=== PATIENT | female | born 1990 | race Caucasian/White ===

== ENCOUNTER 2018-11-05 08:52 | Emergency (ER) | payer OTHER ==
[2018-11-05 09:13] VITALS: RESP 18
[2018-11-05] MEDS ORDERED: SODIUM CHLORIDE 0.9% 1,000 ML IV ONE (09:18)
[2018-11-05 09:42] LABS: Basophils % (A) 0 %; Eosinophils # (A) 0.1 k/uL (0-0.7); Eosinophils % (A) 1 %; HCT 41.8 % (34.0-46.0); HGB 14.2 gm/dL (11.4-16.0); Lymphocytes # (A) 2.5 k/uL (1.0-4.8); Lymphocytes % (A) 24 %; MCH 30.3 pg (25.0-35.0); MCHC 34.1 g/dL (31.0-37.0); MCV 88.8 fL (80.0-100.0); Mean Platelet Volume 6.9; Monocytes # (A) 0.6 k/uL (0-1.0); Monocytes % (A) 6 %; Neutrophils # (A) 6.9 k/uL (1.3-7.7); Neutrophils % (A) 67 %; Platelet Count 319 k/uL (150-450); RDW 13.8 % (11.5-15.5); WBC 10.2 k/uL (3.8-10.6)
--- NOTE | 2018-11-05 09:44 | ED ---
Nausea/Vomiting/Diarrhea HPI - General Chief complaint: Nausea/Vomiting/Diarrhea Stated complaint: , LEGS FEEL WEAK Time Seen by Provider: 11/05/18 09:15 Source: patient, RN notes reviewed Mode of arrival: ambulatory Limitations: no limitations - History of Present Illness Initial comments: This a 20-year-old female presents emergency Department chief complaint of nausea, generalized weakness. Patient states she is approximately 7 weeks pregn ant. She did have some abdominal cramping this morning no bleeding no vaginal discharge. Patient states she is A0. Patient states that she is appointment next week with her PICU NURSE Dr. Olvera. Patient denies any chest pain or shortness of breath. She states she did not eat this morning because she was nauseated. Patient states that she just feels more weak than usual. Patient offers no other complaints. - Related Data Home Medications Medication Instructions Recorded Confirmed Pnv,Calcium 72/Iron/Folic Acid 1 tab PO DAILY 09/06/15 11/05/18 [ Plus Tablet] Allergies Allergy/AdvReac Type Severity Reaction Status Date / Time No Known Allergies Allergy Verified 11/05/18 09:49 Review of Systems ROS Statement: Those systems with pertinent positive or pertinent negative responses have been documented in the HPI. ROS Other: All systems not noted in ROS Statement are negative. Past Medical History Past Medical History: No Reported History Additional Past Medical History / Comment(s): MRSA, mental health illness, UTIs History of Any Multi-Drug Resistant Organisms: MRSA Date of last positivie culture/infection: 10/2014 MDRO Source:: skin, was on her thighs, buttocks, and back Past Surgical History: Appendectomy, Section, Cholecystectomy, Orthopedic Surgery Additional Past Surgical History / Comment(s): multiple bilateral knee surgeries Past Anesthesia/Blood Transfusion Reactions: No Reported Reaction Past Psychological History: Bipolar Smoking Status: Current every day smoker Past Alcohol Use History: Occasional Past Drug Use History: Marijuana - Past Family History Mother Family Medical History: Fibromyalgia Father History Unknown: Yes Family Medical History: Congestive Heart Failure (CHF), Hypertension General Exam Limitations: no limitations General appearance: alert, in no apparent distress Head exam: Present: atraumatic, normocephalic, normal inspection Eye exam: Present: normal appearance, PERRL, EOMI. Absent: scleral icterus, conjunctival injection, periorbital swelling ENT exam: Present: normal exam, normal oropharynx, mucous membranes moist Neck exam: Present: normal inspection, full ROM. Absent: tenderness, meningismus, lymphadenopathy Respiratory exam: Present: normal lung sounds bilaterally. Absent: respiratory distress, wheezes, rales, rhonchi, stridor Cardiovascular Exam: Present: regular rate, normal rhythm, normal heart sounds. Absent: systolic murmur, diastolic murmur, rubs, gallop, clicks GI/Abdominal exam: Present: soft, normal bowel sounds. Absent: distended, tenderness, guarding, rebound, rigid Course Vital Signs 11/05/18 09:12 Temperature 98.6 F Pulse Rate 72 Respiratory 18 Rate Blood Pressure 140/75 O2 Sat by Pulse 97 Oximetry Medical Decision Making - Medical Decision Making 20-year-old female presented from for nausea and , feeling weak. Patient has normal lab work, ultrasound shows gestational 6 weeks and 2 days. Patient will be discharged follow-up next week with PICU NURSE return parameters were discussed. - Lab Data Result diagrams: 11/05/18 09:32 11/05/18 09:32 Lab Results 11/05/18 11/05/18 11/05/18 Range/Units 09:32 09:32 09:32 WBC 10.2 (3.8-10.6) k/uL RBC 4.70 (3.80-5.40) m/uL Hgb 14.2 (11.4-16.0) gm/dL Hct 41.8 (34.0-46.0) % MCV 88.8 (80.0-100.0) fL MCH 30.3 (25.0-35.0) pg MCHC 34.1 (31.0-37.0) g/dL RDW 13.8 (11.5-15.5) % Plt Count 319 (150-450) k/uL Neutrophils % 67 % Lymphocytes % 24 % Monocytes % 6 % Eosinophils % 1 % Basophils % 0 % Neutrophils # 6.9 (1.3-7.7) k/uL Lymphocytes # 2.5 (1.0-4.8) k/uL Monocytes # 0.6 (0-1.0) k/uL Eosinophils # 0.1 (0-0.7) k/uL Basophils # 0.0 (0-0.2) k/uL Sodium 141 (137-145) mmol/L Potassium 4.0 (3.5-5.1) mmol/L Chloride 107 (98-107) mmol/L Carbon Dioxide 25 (22-30) mmol/L Anion Gap 9 mmol/L BUN 12 (7-17) mg/dL Creatinine 0.49 L (0.52-1.04) mg/dL Est GFR (CKD-EPI)AfAm >90 (>60 ml/min/1.73 sqM) Est GFR (CKD-EPI)NonAf >90 (>60 ml/min/1.73 sqM) Glucose 79 (74-99) mg/dL Calcium 9.8 (8.4-10.2) mg/dL Total Bilirubin 0.4 (0.2-1.3) mg/dL AST 18 (14-36) U/L ALT 30 (9-52) U/L Alkaline Phosphatase 50 (38-126) U/L Total Protein 7.1 (6.3-8.2) g/dL Albumin 4.2 (3.5-5.0) g/dL HCG, Quant 60385.0 mIU/mL Urine Color Urine Appearance (Clear) Urine pH (5.0-8.0) Ur Specific [place] (1.001-1.035) Urine Protein (Negative) Urine Glucose (UA) (Negative) Urine Ketones (Negative) Urine Blood (Negative) Urine Nitrite (Negative) Urine Bilirubin (Negative) Urine Urobilinogen (<2.0) mg/dL Ur Leukocyte Esterase (Negative) Urine RBC (0-5) /hpf Urine WBC (0-5) /hpf Ur Squamous Epith Cells (0-4) /hpf Amorphous Sediment (None) /hpf Urine Bacteria (None) /hpf Urine Mucus (None) /hpf 11/05/18 Range/Units 09:39 WBC (3.8-10.6) k/uL RBC (3.80-5.40) m/uL Hgb (11.4-16.0) gm/dL Hct (34.0-46.0) % MCV (80.0-100.0) fL MCH (25.0-35.0) pg MCHC (31.0-37.0) g/dL RDW (11.5-15.5) % Plt Count (150-450) k/uL Neutrophils % % Lymphocytes % % Monocytes % % Eosinophils % % Basophils % % Neutrophils # (1.3-7.7) k/uL Lymphocytes # (1.0-4.8) k/uL Monocytes # (0-1.0) k/uL Eosinophils # (0-0.7) k/uL Basophils # (0-0.2) k/uL Sodium (137-145) mmol/L Potassium (3.5-5.1) mmol/L Chloride (98-107) mmol/L Carbon Dioxide (22-30) mmol/L Anion Gap mmol/L BUN (7-17) mg/dL Creatinine (0.52-1.04) mg/dL Est GFR (CKD-EPI)AfAm (>60 ml/min/1.73 sqM) Est GFR (CKD-EPI)NonAf (>60 ml/min/1.73 sqM) Glucose (74-99) mg/dL Calcium (8.4-10.2) mg/dL Total Bilirubin (0.2-1.3) mg/dL AST (14-36) U/L ALT (9-52) U/L Alkaline Phosphatase (38-126) U/L Total Protein (6.3-8.2) g/dL Albumin (3.5-5.0) g/dL HCG, Quant mIU/mL Urine Color Yellow Urine Appearance Cloudy H (Clear) Urine pH 8.0 (5.0-8.0) Ur Specific [place] 1.019 (1.001-1.035) Urine Protein Negative (Negative) Urine Glucose (UA) Negative (Negative) Urine Ketones Negative (Negative) Urine Blood Negative (Negative) Urine Nitrite Negative (Negative) Urine Bilirubin Negative (Negative) Urine Urobilinogen <2.0 (<2.0) mg/dL Ur Leukocyte Esterase Negative (Negative) Urine RBC <1 (0-5) /hpf Urine WBC 1 (0-5) /hpf Ur Squamous Epith Cells 7 H (0-4) /hpf Amorphous Sediment Few H (None) /hpf Urine Bacteria Rare H (None) /hpf Urine Mucus Rare H (None) /hpf Disposition Clinical Impression: , Nausea & vomiting Disposition: HOME SELF-CARE Condition: Stable Instructions (If sedation given, give patient instructions): (ED) Additional Instructions: Please return to the Emergency Department if symptoms worsen or any other concerns. Is patient prescribed a controlled substance at d/c from ED?: No Referrals: Fannie Jackson MD [Primary Care Provider] - 1-2 days Time of Disposition: 11:06
[2018-11-05 10:00] LABS: ALT 30 U/L (9-52); AST 18 U/L (14-36); Albumin 4.2 g/dL (3.5-5.0); Alkaline Phosphatase 50 U/L (38-126); Anion Gap 9 mmol/L; Blood Urea Nitrogen 12 mg/dL (7-17); Calcium 9.8 mg/dL (8.4-10.2); Carbon Dioxide 25 mmol/L (22-30); Chloride 107 mmol/L (98-107); Glucose 79 mg/dL (74-99); Sodium 141 mmol/L (137-145); Total Bilirubin 0.4 mg/dL (0.2-1.3); Total Protein 7.1 g/dL (6.3-8.2)
[2018-11-05 10:19] LABS: Amorphous Sediment,Urine Few /hpf; Appearance,Urine Cloudy (Clear); Bacteria,Urine Rare /hpf; Bilirubin,Urine Negative (Negative); Blood,Urine Negative (Negative); Color,Urine Yellow; Glucose,Urine (UA) Negative (Negative); Ketones,Urine Negative (Negative); Leukocyte Esterase,Urine Negative (Negative); Mucus,Urine Rare /hpf; Nitrite,Urine Negative (Negative); Protein,Urine Negative (Negative); RBC,Urine <1 /hpf (0-5); Specific Gravity,Urine 1.019 (1.001-1.035); Squamous Epithelial Cell,Urine 7 /hpf (0-4); Urobilinogen,Urine <2.0 mg/dL (<2.0); WBC,Urine 1 /hpf (0-5)
--- NOTE | 2018-11-05 10:53 | US ---
EXAMINATION TYPE: Transabdominal DATE OF EXAM: 11/05/2018 10:32 AM COMPARISON: NONE CLINICAL HISTORY: Pain. Patient states no pain or bleeding, bilateral leg weakness, 2, para 1 , history of EXAM PERFORMED: Transvaginal (TV) and Transabdominal (TA) and endovaginal scanning was performed for better evaluation of the and ovaries EXAM MEASUREMENTS: GESTATIONAL AGE / DATING Physician Established: Not established yet Dates by LMP: (6 weeks/4 days) EDC: 06/27/2019 Dates by First Scan: This is 1st scan Dates by Current Scan for: ( 6 weeks/2 days) EDC: 06/29/2019 MATERNAL ANATOMY Uterus: 8.8 x 4.6 x 5.5cm, anteverted, heterogeneous Right Ovary: 2.1 x 1.7 x 2.1cm Left Ovary: 4.2 x 3.2 x 3.9cm Post CDS / Adnexa: small amount of free fluid in posterior cul de sac Presence of free fluid: yes Presence of corpus luteal cyst: left ovary: 2.8 x 2.3 x 2.8cm cystic area Presence of subchorionic bleed: no GESTATION / SURVEY CRL: 0.5cm (6 weeks/2 days) Yolk Sac (normal less than 6mm): 3.4mm Heart Rate: 118 bpm Rhythm: Normal IUP: Viable IUP Date of LMP: 09/20/2018 Beta HcG (if available): Not available at time of exam IMPRESSION: Single viable intrauterine corresponding to ultrasound age 6 weeks 2 days with estimated da te of delivery 06/29/2019
[2018-11-05 12:29] VITALS: BP 139/97; PULSE 79; TEMP 98.4
== END 2018-11-05 11:16 | disposition home or self-care (01) ==
LOC: EC 08:52
DX: O21.9 Vomiting of pregnancy, unspecified (principal); O99.89 Other specified diseases and conditions complicating pregnancy, childbirth and the puerperium; R53.1 Weakness; R19.7 Diarrhea, unspecified; O99.331 Smoking (tobacco) complicating pregnancy, first trimester; F17.200 Nicotine dependence, unspecified, uncomplicated; Z86.14 Personal history of Methicillin resistant Staphylococcus aureus infection; Z90.49 Acquired absence of other specified parts of digestive tract; Z3A.01 Less than 8 weeks gestation of pregnancy
CPT/HCPCS: 36415; 76801; 76817; 80053; 81001; 84702; 85025; 96360; 99284

== ENCOUNTER 2019-03-17 19:46 | Outpatient (CLI) | payer OTHER ==
[2019-03-17 20:31] VITALS: BP 123/66; PULSE 98; RESP 16; TEMP 98.3
--- NOTE | 2019-03-18 08:37 | P.MSEPDOC ---
Presenting Problems - Arrival Data Date of Arrival on Unit: 03/17/19 Time of Arrival on Unit: 20:11 Mode of Transport: Ambulatory - Complaint OB-Reason for Admission/Chief Complaint: Pain Comment: Abdominal pain 03/15 Medical History - Information : 2 Para: 1 Term: 1 : 0 Abortions: Spontaneous or Elective: 0 Number of Living Children: 1 - Gestational Age Gestational Age by PHILLIP (wks/days): 25 Weeks and 3 Days - History Complications: Smoker Review of Systems - Review of Systems Constitutional: No problems Breast: No problems ENT: No problems Cardiovascular: No problems Respiratory: No problems Gastrointestinal: No problems Genitourinary: No problems Musculoskeletal: No problems Neurological: No problems Skin: No problems Vital Signs - Temperature Temperature: 98.3 F Temperature Source: Temporal Artery Scan - Pulse Right Brachial Pulse Rate: 98 Pulse Assessment Method: Automatic Cuff - Respirations Respiratory Rate: 16 Oxygen Delivery Method: Room Air O2 Sat by Pulse Oximetry: 95 - Blood Pressure Right Arm Blood Pressure: 123/66 Blood Pressure Mean: 85 Blood Pressure Source: Automatic Cuff Medical Screen Scoring (Pre) - Cervical Exam Dilation: Exam Deferred Effacement: Exam Deferred - Uterine Contractions Frequency: N/A Duration: N/A Intensity: N/A - Maternal Vital Signs Maternal Temperature: N/A - Maternal Trauma Maternal Trauma: N/A - Assessment - Baby A Baseline FHR: 150 Heart Rate - NICHD Category: Category I (Normal) = 0 Position: N/A Station: N/A - Total Score - Baby A Total Score - Baby A: 0 - Total Score - Baby B Total Score - Baby B: 0 - Total Score - Baby C Total Score - Baby C: 0 - Level of Risk - Baby A Level of Risk - Baby A: Low (0-5) - Level of Risk - Baby B Level of Risk - Baby B: Low (0-5) - Level of Risk - Baby C Level of Risk - Baby C: Low (0-5) Physician Notification (Pre) - Physician Notified Physician Notified Date: 03/17/19 Physician Notified Time: 20:11 Spoke With: Sindhu New Order Received: No - Notification Comment Comment: D/c pt home, follow up with Wade Flores 04/09/19. Call sooner if work release note is needed. Disposition - Disposition OB Disposition: Discharge to home, Written follow up instructions reviewed Discharge Date: 03/17/19 Discharge Time: 20:15 I agree with the RN Medical Screening Exam: Yes Risk & Benefit of care provided described in d/c instruction: Yes Diagnosis: LOWER ABDOMINAL PAIN, UNSPECIFIED
== END 2019-03-17 20:15 | disposition home or self-care (01) ==
LOC: FBPOP 19:46
PROVIDERS: ATTEND Obstetrics & Gynecology
DX: O26.892 Other specified pregnancy related conditions, second trimester (principal); Z3A.25 25 weeks gestation of pregnancy; R10.30 Lower abdominal pain, unspecified
CPT/HCPCS: 99213

== ENCOUNTER 2019-04-28 23:25 | Outpatient (CLI) | payer OTHER ==
[2019-04-29 00:25] VITALS: BP 135/64; PULSE 89; RESP 16; TEMP 97.1
[2019-04-29 00:51] LABS: Amorphous Sediment,Urine Moderate /hpf; Appearance,Urine Turbid (Clear); Bacteria,Urine Occasional /hpf; Bilirubin,Urine Negative (Negative); Blood,Urine Negative (Negative); Color,Urine Yellow; Glucose,Urine (UA) Negative (Negative); Ketones,Urine Negative (Negative); Leukocyte Esterase,Urine Large (Negative); Mucus,Urine Rare /hpf; Nitrite,Urine Negative (Negative); PH, Urine 6.5 (5.0-8.0); Protein,Urine Negative (Negative); RBC,Urine 3 /hpf (0-5); Specific Gravity,Urine 1.014 (1.001-1.035); Squamous Epithelial Cell,Urine 14 /hpf (0-4); Urobilinogen,Urine <2.0 mg/dL (<2.0); WBC,Urine 84 /hpf (0-5)
[2019-04-29 00:57] LABS: Amphetamine Screen,Urine Not Detected (NotDetected); Barbiturate Screen,Urine Not Detected (NotDetected); Benzodiazepines Screen,Urine Not Detected (NotDetected); Cocaine Screen,Urine Not Detected (NotDetected); Methadone Screen, Urine Not Detected (NotDetected); Opiate Screen,Urine Not Detected (NotDetected); Oxycodone Screen, Urine Not Detected (NotDetected); Phencyclidine Screen,Urine Not Detected (NotDetected); Tricyclic Antidepressant,Urine Not Detected (NotDetected); Urn Cannabinoid Scrn Detected (NotDetected)
--- NOTE | 2019-05-01 10:40 | P.MSEPDOC ---
Presenting Problems - Arrival Data Date of Arrival on Unit: 04/29/19 Time of Arrival on Unit: 23:25 Mode of Transport: Ambulatory - Complaint OB-Reason for Admission/Chief Complaint: Pain Comment: sharp pain that extends from back to left lower abdomen following chiropractic apt Medical History - Information : 2 Para: 1 Term: 1 : 0 Abortions: Spontaneous or Elective: 0 Number of Living Children: 1 - Gestational Age Gestational Age by PHILLIP (wks/days): 31 Weeks and 4 Days - History Complications: Smoker Review of Systems - Review of Systems Constitutional: No problems Breast: No problems ENT: No problems Cardiovascular: No problems Respiratory: No problems Gastrointestinal: No problems Genitourinary: No problems Musculoskeletal: No problems Neurological: No problems Skin: No problems Vital Signs - Temperature Temperature: 97.1 F Temperature Source: Temporal Artery Scan - Pulse Right Brachial Pulse Rate: 89 Pulse Assessment Method: Automatic Cuff - Respirations Respiratory Rate: 16 Oxygen Delivery Method: Room Air O2 Sat by Pulse Oximetry: 98 - Blood Pressure Right Arm Blood Pressure: 135/64 Blood Pressure Mean: 87 Blood Pressure Source: Automatic Cuff Medical Screen Scoring (Pre) - Cervical Exam Dilation: Exam Deferred Effacement: Exam Deferred Membranes: Intact - Uterine Contractions Frequency: N/A Duration: N/A Intensity: N/A - Maternal Vital Signs Maternal Temperature: N/A Maternal Blood Pressure: N/A Signs of Preeclampsia: N/A Maternal Respirations: N/A - Maternal Trauma Maternal Trauma: N/A - Assessment - Baby A Baseline FHR: 135 Heart Rate - NICHD Category: Category I (Normal) = 0 NST: Reactive Position: N/A Station: N/A - Total Score - Baby A Total Score - Baby A: 0 - Total Score - Baby B Total Score - Baby B: 0 - Total Score - Baby C Total Score - Baby C: 0 - Level of Risk - Baby A Level of Risk - Baby A: Low (0-5) - Level of Risk - Baby B Level of Risk - Baby B: Low (0-5) - Level of Risk - Baby C Level of Risk - Baby C: Low (0-5) Physician Notification (Pre) - Physician Notified Physician Notified Date: 04/29/19 Physician Notified Time: 00:01 Physician/Practitioner Notifed:: Dr. Brown Spoke With: Dr. Brown New Order Received: Yes - Notification Comment Comment: Dr. Brown called and given report on pt UA in triage. Orders recieved to d/c. pt to home. To educate pt to followup with chiropractor or Dr. Olvera. Disposition - Disposition OB Disposition: Discharge to home Discharge Date: 04/29/19 Discharge Time: 01:10 I agree with the RN Medical Screening Exam: Yes Risk & Benefit of care provided described in d/c instruction: Yes Diagnosis: RELATED CONDITIONS, UNSPECIFIED, THIRD TRIMESTER
== END 2019-04-29 01:10 | disposition home or self-care (01) ==
LOC: FBPOP 23:25
PROVIDERS: ATTEND Obstetrics & Gynecology
DX: O26.93 Pregnancy related conditions, unspecified, third trimester (principal); Z3A.31 31 weeks gestation of pregnancy
CPT/HCPCS: 59025; 81001; 80306; 87086; G0463; 99213

== ENCOUNTER 2019-06-06 22:30 | Outpatient (CLI) | payer OTHER ==
[2019-06-06 23:43] VITALS: PULSE 96; RESP 18; TEMP 97
[2019-06-06 23:50] LABS: Appearance,Urine Clear (Clear); Bacteria,Urine Rare /hpf; Bilirubin,Urine Negative (Negative); Blood,Urine Negative (Negative); Color,Urine Yellow; Glucose,Urine (UA) Negative (Negative); Ketones,Urine Negative (Negative); Leukocyte Esterase,Urine Small (Negative); Mucus,Urine Occasional /hpf; Nitrite,Urine Negative (Negative); PH, Urine 6.5 (5.0-8.0); Protein,Urine Negative (Negative); RBC,Urine 2 /hpf (0-5); Specific Gravity,Urine 1.014 (1.001-1.035); Squamous Epithelial Cell,Urine 2 /hpf (0-4); Urobilinogen,Urine <2.0 mg/dL (<2.0); WBC,Urine 6 /hpf (0-5)
[2019-06-07 00:21] LABS: Basophils # (A) 0.1 k/uL (0-0.2); Basophils % (A) 1 %; Eosinophils # (A) 0.3 k/uL (0-0.7); Eosinophils % (A) 2 %; HCT 37.1 % (34.0-46.0); HGB 12.4 gm/dL (11.4-16.0); Lymphocytes # (A) 2.5 k/uL (1.0-4.8); Lymphocytes % (A) 17 %; MCH 30.8 pg (25.0-35.0); MCHC 33.5 g/dL (31.0-37.0); MCV 91.8 fL (80.0-100.0); Mean Platelet Volume 6.4; Monocytes # (A) 0.7 k/uL (0-1.0); Monocytes % (A) 5 %; Neutrophils # (A) 10.4 k/uL (1.3-7.7); Neutrophils % (A) 72 %; Platelet Count 298 k/uL (150-450); RBC 4.04 m/uL (3.80-5.40); RDW 13.2 % (11.5-15.5); WBC 14.5 k/uL (3.8-10.6)
[2019-06-07 00:28] LABS: ALT 21 U/L (9-52); AST 20 U/L (14-36); African American GFR (CKD) >90 (>60 ml/min/1.73 sqM); Blood Urea Nitrogen 7 mg/dL (7-17); LDH 429 U/L (313-618); Uric Acid 3.7 mg/dL (3.7-7.4)
[2019-06-07 01:01] VITALS: BP 131/71
--- NOTE | 2019-06-07 09:06 | P.MSEPDOC ---
Presenting Problems - Arrival Data Date of Arrival on Unit: 06/06/19 Time of Arrival on Unit: 22:29 Mode of Transport: Wheelchair - Complaint OB-Reason for Admission/Chief Complaint: Rule Out SROM Comment: leaking since 2144 Medical History - Information : 2 Para: 1 Term: 1 : 0 Abortions: Spontaneous or Elective: 0 Number of Living Children: 1 - Gestational Age Gestational Age by PHILLIP (wks/days): 37 Weeks and 0 Days - History Complications: GBS+, Prior , Smoker, Hx. Substance Abuse Comment: marijuana Review of Systems - Review of Systems Constitutional: No problems Breast: No problems ENT: No problems Cardiovascular: No problems Respiratory: No problems Gastrointestinal: No problems Genitourinary: No problems Musculoskeletal: No problems Neurological: No problems Skin: No problems Vital Signs - Temperature Temperature: 97.0 F Temperature Source: Temporal Artery Scan - Pulse Right Pulse Rate: 96 Pulse Assessment Method: Automatic Cuff - Respirations Respiratory Rate: 18 - Blood Pressure Right Arm Blood Pressure: 131/71 Blood Pressure Mean: 91 Blood Pressure Source: Automatic Cuff Medical Screen Scoring (Pre) - Cervical Exam Dilation: Exam Deferred Effacement: Exam Deferred - Uterine Contractions Frequency: N/A Duration: N/A Intensity: N/A - Maternal Vital Signs Maternal Temperature: N/A Maternal Blood Pressure: Systolic >139 = 2 Signs of Preeclampsia: N/A Maternal Respirations: N/A - Maternal Trauma Maternal Trauma: N/A - Assessment - Baby A Baseline FHR: 125 Heart Rate - NICHD Category: Category I (Normal) = 0 NST: Reactive Position: N/A Station: N/A - Total Score - Baby A Total Score - Baby A: 2 - Total Score - Baby B Total Score - Baby B: 2 - Total Score - Baby C Total Score - Baby C: 2 - Level of Risk - Baby A Level of Risk - Baby A: Low (0-5) - Level of Risk - Baby B Level of Risk - Baby B: Low (0-5) - Level of Risk - Baby C Level of Risk - Baby C: Low (0-5) Physician Notification (Pre) - Physician Notified Physician Notified Date: 06/06/19 Physician Notified Time: 23:21 - Notification Comment Comment: spoke with Dr Olvera. Reported on pts c/o cntrx, leaking. No cntrx traced, pt reports about 2 per hour. No leaking noted, perineum and underpad dry, negative amniusre. Reactive fhts. No SVE. PCS. Reported on vitals, increase in BP, asymptomatic otherwise. Orders for PIH labs given, call with results. Medical Screen Scoring (Post) - Cervical Exam Dilation: Exam Deferred Effacement: Exam Deferred - Uterine Contractions Frequency: N/A Duration: N/A Intensity: N/A - Maternal Vital Signs Maternal Temperature: N/A Maternal Blood Pressure: N/A Signs of Preeclampsia: N/A Maternal Respirations: N/A - Maternal Trauma Maternal Trauma: N/A - Assessment - Baby A Heart Rate: 120 Heart Rate - NICHD Category: Category I (Normal) = 0 NST: Reactive Position: N/A Station: N/A - Total Score Total Score - Baby A: 0 Total Score - Baby B: 0 Total Score - Baby C: 0 - Post Treatment Level of Risk Post Treatment Level of Risk - Baby A: Low (0-5) Physician Notification (Post) - Physician Notified Physician Notified Date: 06/07/19 Physician Notified Time: 00:36 Physician/Practitioner Notified:: Wade - Notification Comment Comment: reported on labs, vitals, reactive fhts, no cntrx/pain/leaking. orders to d/c home, keep scheduled appt on sunday. return with any new or worsening sx. Disposition - Disposition OB Disposition: Discharge to home Discharge Date: 06/07/19 Discharge Time: 00:45 I agree with the RN Medical Screening Exam: Yes Risk & Benefit of care provided described in d/c instruction: Yes Diagnosis: GESTATIONAL HTN W/O SIGNIFICANT PROTEINURIA, THIRD TRIMESTER
== END 2019-06-07 00:45 | disposition home or self-care (01) ==
LOC: FBPOP 22:30
PROVIDERS: ATTEND Obstetrics & Gynecology
DX: O13.3 Gestational [pregnancy-induced] hypertension without significant proteinuria, third trimester (principal); Z3A.37 37 weeks gestation of pregnancy
CPT/HCPCS: 59025; 84112; 82570; 84156; 82565; 83615; 84450; 84460; 84520; 84550; 85025; 81001; G0463; 99215

== ENCOUNTER 2019-06-07 16:55 | Outpatient (CLI) | payer OTHER ==
[2019-06-07 17:55] LABS: Basophils # (A) 0.1 k/uL (0-0.2); Basophils % (A) 1 %; Eosinophils # (A) 0.2 k/uL (0-0.7); Eosinophils % (A) 2 %; HCT 36.9 % (34.0-46.0); HGB 12.3 gm/dL (11.4-16.0); Lymphocytes # (A) 1.9 k/uL (1.0-4.8); Lymphocytes % (A) 16 %; MCH 31.3 pg (25.0-35.0); MCHC 33.3 g/dL (31.0-37.0); MCV 93.8 fL (80.0-100.0); Mean Platelet Volume 6.1; Monocytes # (A) 0.6 k/uL (0-1.0); Monocytes % (A) 6 %; Neutrophils # (A) 8.2 k/uL (1.3-7.7); Neutrophils % (A) 72 %; Platelet Count 301 k/uL (150-450); RBC 3.94 m/uL (3.80-5.40); RDW 13.3 % (11.5-15.5); WBC 11.4 k/uL (3.8-10.6)
[2019-06-07 17:58] LABS: Amorphous Sediment,Urine Rare /hpf; Appearance,Urine Cloudy (Clear); Bilirubin,Urine Negative (Negative); Blood,Urine Negative (Negative); Color,Urine Light Yellow; Glucose,Urine (UA) Trace (Negative); Ketones,Urine Negative (Negative); Leukocyte Esterase,Urine Large (Negative); Mucus,Urine Rare /hpf; Nitrite,Urine Negative (Negative); PH, Urine 6.5 (5.0-8.0); Protein,Urine Negative (Negative); RBC,Urine 5 /hpf (0-5); Specific Gravity,Urine 1.008 (1.001-1.035); Squamous Epithelial Cell,Urine 20 /hpf (0-4); Urobilinogen,Urine <2.0 mg/dL (<2.0); WBC,Urine 30 /hpf (0-5)
[2019-06-07 18:03] LABS: ALT 18 U/L (9-52); AST 15 U/L (14-36); African American GFR (CKD) >90 (>60 ml/min/1.73 sqM); Blood Urea Nitrogen 7 mg/dL (7-17); LDH 341 U/L (313-618); Uric Acid 4.4 mg/dL (3.7-7.4)
[2019-06-07 18:48] VITALS: BP 127/71; PULSE 114; RESP 20; TEMP 97.9
--- NOTE | 2019-06-17 03:48 | P.MSEPDOC ---
Presenting Problems - Arrival Data Date of Arrival on Unit: 06/07/19 Time of Arrival on Unit: 16:55 Mode of Transport: Ambulatory - Complaint OB-Reason for Admission/Chief Complaint: PIH Comment: pt presents to triage for headache, nausea, and elevated bp's at home Medical History - Information : 2 Para: 1 Term: 1 : 0 Abortions: Spontaneous or Elective: 0 Number of Living Children: 1 - Gestational Age Gestational Age by PHILLIP (wks/days): 37 Weeks and 1 Days - History Complications: Preeclampsia Review of Systems - Review of Systems Constitutional: No problems Breast: No problems ENT: No problems Cardiovascular: No problems Respiratory: No problems Gastrointestinal: No problems Genitourinary: No problems Musculoskeletal: No problems Neurological: No problems Skin: No problems Vital Signs - Temperature Temperature: 97.9 F Temperature Source: Temporal Artery Scan - Pulse Right Brachial Pulse Rate: 114 Pulse Assessment Method: Pulse Oximetry - Respirations Respiratory Rate: 20 Oxygen Delivery Method: Room Air - Blood Pressure Right Arm Blood Pressure: 127/71 Blood Pressure Mean: 89 Blood Pressure Source: Automatic Cuff Medical Screen Scoring (Pre) - Cervical Exam Dilation: Exam Deferred Effacement: Exam Deferred Membranes: Intact - Uterine Contractions Frequency: N/A Duration: N/A Intensity: N/A - Maternal Vital Signs Maternal Temperature: N/A Maternal Blood Pressure: N/A Signs of Preeclampsia: N/A Maternal Respirations: N/A - Maternal Trauma Maternal Trauma: N/A - Assessment - Baby A Baseline FHR: 135 Heart Rate - NICHD Category: Category I (Normal) = 0 NST: Reactive Position: N/A Station: N/A - Total Score - Baby A Total Score - Baby A: 0 - Total Score - Baby B Total Score - Baby B: 0 - Total Score - Baby C Total Score - Baby C: 0 - Level of Risk - Baby A Level of Risk - Baby A: Low (0-5) - Level of Risk - Baby B Level of Risk - Baby B: Low (0-5) - Level of Risk - Baby C Level of Risk - Baby C: Low (0-5) Physician Notification (Pre) - Physician Notified Physician Notified Date: 06/07/19 Physician Notified Time: 18:24 New Order Received: Yes - Notification Comment Comment: [facility] labs were drawn and labs reported back to Dr. Olvera, orders to discharge pt home with instructions to follow up on sunday at scheduled appt, return for evaluation if decreased movement or any other increased s/s of preeclampsia Disposition - Disposition OB Disposition: Discharge to home, Written follow up instructions reviewed Discharge Date: 06/07/19 Discharge Time: 18:35 I agree with the RN Medical Screening Exam: Yes Risk & Benefit of care provided described in d/c instruction: Yes Diagnosis: GESTATIONAL HTN W/O SIGNIFICANT PROTEINURIA, THIRD TRIMESTER
== END 2019-06-07 18:35 | disposition home or self-care (01) ==
LOC: FBPOP 16:55
PROVIDERS: ATTEND Obstetrics & Gynecology
DX: O13.3 Gestational [pregnancy-induced] hypertension without significant proteinuria, third trimester (principal); Z3A.37 37 weeks gestation of pregnancy
CPT/HCPCS: 59025; 82570; 84156; 82565; 83615; 84450; 84460; 84520; 84550; 85025; 81001; G0463; 99215

== ENCOUNTER 2019-06-09 10:45 | Inpatient (IN) | payer OTHER ==
[2019-06-09 13:16] LABS: Appearance,Urine Cloudy (Clear); Bacteria,Urine Occasional /hpf; Bilirubin,Urine Negative (Negative); Blood,Urine Negative (Negative); Color,Urine Light Yellow; Glucose,Urine (UA) Negative (Negative); Ketones,Urine Negative (Negative); Leukocyte Esterase,Urine Large (Negative); Nitrite,Urine Negative (Negative); Protein,Urine Negative (Negative); RBC,Urine 1 /hpf (0-5); Squamous Epithelial Cell,Urine 27 /hpf (0-4); Urobilinogen,Urine <2.0 mg/dL (<2.0); WBC,Urine 42 /hpf (0-5)
[2019-06-09 13:36] LABS: Basophils # (A) 0.1 k/uL (0-0.2); Basophils % (A) 0 %; Eosinophils # (A) 0.2 k/uL (0-0.7); Eosinophils % (A) 1 %; HCT 37.1 % (34.0-46.0); HGB 12.7 gm/dL (11.4-16.0); Lymphocytes # (A) 1.8 k/uL (1.0-4.8); Lymphocytes % (A) 13 %; MCH 31.5 pg (25.0-35.0); MCHC 34.2 g/dL (31.0-37.0); MCV 92.3 fL (80.0-100.0); Mean Platelet Volume 5.8; Monocytes # (A) 0.5 k/uL (0-1.0); Monocytes % (A) 4 %; Neutrophils # (A) 10.4 k/uL (1.3-7.7); Neutrophils % (A) 78 %; Platelet Count 298 k/uL (150-450); RBC 4.02 m/uL (3.80-5.40); RDW 13.3 % (11.5-15.5); WBC 13.4 k/uL (3.8-10.6)
[2019-06-09 13:49] LABS: ALT 16 U/L (9-52); AST 13 U/L (14-36); African American GFR (CKD) >90 (>60 ml/min/1.73 sqM); LDH 306 U/L (313-618); Uric Acid 4.1 mg/dL (3.7-7.4)
[2019-06-09 14:22] VITALS: BMI 42.0
[2019-06-09] MEDS ORDERED: ACETAMINOPHEN TAB 325 MG TAB PO STA (17:43)
--- NOTE | 2019-06-09 18:08 | P.HPOB ---
History of Present Illness H&P Date: 06/09/19 Chief Complaint: Intrauterine at 37 weeks: Rule out preeclampsia Patient is a 29-year-old prior section who arrived to labor and delivery today with complaint of a headache. She is been seen throughout the weekend on both Sunday and Sunday for similar complaint and apparently over the weekend she had at least one isolated elevation in blood pressure. We've been following her throughout the afternoon and repeat her preeclamptic labs. All of her preeclamptic labs including AST/ALTs/creatinine/uric acid/platelet count were all normal. Her urinalysis revealed a negative protein and no other gross findings. It was noted that she had a protein creatinine ratio of .3.324 over the weekend. Her protein to creatinine ratio is down to.32 with a total protein value of 13. There is no evidence of preeclampsia. She has no actual signs or symptoms of preeclampsia she has no peripheral or central edema. She has normal blood pressures today. Her deep tendon reflexes are 1+. She relates that she does have a headache but has had this for several days without epigastric pain or visual changes. She can continues to relate that she is very uncomfortable and she wants to have her baby and she is scheduled for section. I have made it clear that if I feel like she is preeclamptic we'll proceed immediately to a repeat section and get her delivered, but there just isn't enough evidence at this time. She's had no other increases in her blood pressure and while her protein creatinine ratio is from a theoretical standpoint elevated, her total protein seems to be very low well below what we would expect would be present in the face of preeclampsia. I started 24-hour urine to try and get a more accurate picture of her actual protein value. If she continues to have symptoms with a progress or change we'll plan to do a section tonight. Otherwise decision will need to be made tomorrow home based on total protein and continued symptoms as well as if she has any elevated blood pressures whether not she needs a section earlier than 39 weeks. We've discussed this all in detail and all questions were answered for her prior to completion of the admission process. It is also noted that she is a smoker and she also uses marijuana which she apparently used this morning prior to coming to labor and delivery. As she is very hungry, will plan to allow her to eat and if there is any changes plan to proceed with a section. Her last blood pressures were 124/70 133/74 I did reexamine and reevaluate Cherelle, her headache seems to be better there is still no peripheral edema she took approximately 2 hour nap and while she says she still feels uncomfortable she is at least stable and again voices no other signs or symptoms of preeclampsia at this time. I did also review the labs with her and all questions were answered. Past Medical History Past Medical History: No Reported History Additional Past Medical History / Comment(s): MRSA, mental health illness, UTIs History of Any Multi-Drug Resistant Organisms: MRSA Date of last positivie culture/infection: 10/2014 MDRO Source:: skin, was on her thighs, buttocks, and back Past Surgical History: Appendectomy, Section, Cholecystectomy, Orthopedic Surgery Additional Past Surgical History / Comment(s): multiple bilateral knee surgeries Past Anesthesia/Blood Transfusion Reactions: No Reported Reaction Past Psychological History: Bipolar Smoking Status: Current every day smoker Past Alcohol Use History: Occasional Past Drug Use History: Marijuana Additional Drug Use History / Comment(s): current daily marijuana - Past Family History Mother Family Medical History: Fibromyalgia Father History Unknown: Yes Family Medical History: Congestive Heart Failure (CHF), Hypertension Medications and Allergies Home Medications Medication Instructions Recorded Confirmed Type Pnv,Calcium 72/Iron/Folic Acid 1 tab PO DAILY 09/06/15 06/09/19 History [ Plus Tablet] Allergies Allergy/AdvReac Type Severity Reaction Status Date / Time No Known Allergies Allergy Verified 06/09/19 11:00 Exam Osteopathic Statement: *. No significant issues noted on an osteopathic structural exam other than those noted in the History and Physical/Consult. Vital Signs Temp Pulse Resp BP Pulse Ox 06/09/19 14:04 98.2 F 75 18 135/74 06/09/19 11:33 96.9 F L 99 16 124/71 98 Intake and Output 06/09/19 06/09/19 06/09/19 06:59 14:59 22:59 Other: Weight 121.563 kg - OBG Physical Exam Breast: both: normal (no masses) Abdomen: bowel sounds normal, no diffuse tenderness, no bruit present, no guarding noted, no hepatomegaly, no splenomegaly, no mass Vulva: both: normal Vagina: normal moisture, no discharge Cervix: no lesion, no discharge Uterus: normal size, normal contour Adnexa: both: normal Anus/Rectum: normal perianal skin, no rectal mass, no hemorrhoids, heme negative Results Result Diagrams: 06/09/19 13:20 06/09/19 13:20 Abnormal Lab Results - Last 24 Hours (Table) 06/09/19 06/09/19 06/09/19 Range/Units 12:40 12:40 13:20 WBC 13.4 H (3.8-10.6) k/uL Neutrophils # 10.4 H (1.3-7.7) k/uL Creatinine (0.52-1.04) mg/dL AST (14-36) U/L Lactate Dehydrogenase (313-618) U/L Urine Appearance Cloudy H (Clear) Ur Leukocyte Esterase Large H (Negative) Urine WBC 42 H (0-5) /hpf Ur Squamous Epith Cells 27 H (0-4) /hpf Urine Bacteria Occasional H (None) /hpf U Random Total Protein 13 H (<12) mg/dL 06/09/19 Range/Units 13:20 WBC (3.8-10.6) k/uL Neutrophils # (1.3-7.7) k/uL Creatinine 0.50 L (0.52-1.04) mg/dL AST 13 L (14-36) U/L Lactate Dehydrogenase 306 L (313-618) U/L Urine Appearance (Clear) Ur Leukocyte Esterase (Negative) Urine WBC (0-5) /hpf Ur Squamous Epith Cells (0-4) /hpf Urine Bacteria (None) /hpf U Random Total Protein (<12) mg/dL
[2019-06-09] MEDS: ACETAMINOPHEN TAB 325 MG TAB PO PRN (23:37)
[2019-06-10] MEDS: ACETAMINOPHEN TAB 325 MG TAB PO PRN ×2 (04:57→11:07)
--- NOTE | 2019-06-10 08:00 | P.PN ---
Progress Note - Text Progress Note Date: 06/10/19 Pt is seen in her bed today. She still has a headache. Her BP last night was up to 150's/80's. She had a few last sunday that were also elevated in 140's /80's. We discussed that now she has had 2 episodes of elevated BPs at least 4 hours apart and her p/c ratio was elevated. I am diagnosing her with pre-eclampsia and will perform today.
[2019-06-10] MEDS ORDERED: CITRIC ACID-SODIUM CITRATE 15 ML CUP PO ONE (08:01)
[2019-06-10] MEDS ORDERED: ceFAZolin 3 GM in SODIUM CHLORIDE 0.9% 100 ML IVPB ONE (08:15)
[2019-06-10] MEDS: LACTATED RINGERS 1,000 ML IV SCH ×2 (09:00→17:17)
[2019-06-10 09:35] LABS: INR 0.8 (<1.2); Prothrombin Time 9.3 sec (9.0-12.0)
[2019-06-10] MEDS ORDERED: MORPHINE SULFATE (PF) 0.3 MG/0.3 ML SYR ONE (12:32)
[2019-06-10] MEDS ORDERED: ONDANSETRON 4 MG/2 ML VIAL ONE (12:32)
[2019-06-10] MEDS ORDERED: NALBUPHINE 10 MG/ML (1 ML AMP) ONE (12:32)
[2019-06-10] MEDS ORDERED: OXYTOCIN 10 UNIT/ML 1 ML VIAL ONE (12:32)
[2019-06-10] MEDS ORDERED: KETOROLAC 30 MG/ML 1 ML VIAL ONE (12:32)
[2019-06-10] MEDS ORDERED: ONDANSETRON 4 MG/2 ML VIAL IVP PRN (13:12)
[2019-06-10] MEDS ORDERED: diphenhydrAMINE 50 MG/ML 1 ML VIAL IVP PRN ×2 (13:12)
[2019-06-10] MEDS ORDERED: LANOLIN CREAM 5 GM TUBE TOPICAL PRN (13:12)
[2019-06-10] MEDS ORDERED: ACETAMINOPHEN TAB 325 MG TAB PO PRN (13:12)
[2019-06-10] MEDS ORDERED: ZOLPIDEM 5 MG TAB PO PRN (13:12)
[2019-06-10] MEDS ORDERED: KETOROLAC 30 MG/ML 1 ML VIAL IVP PRN (13:12)
[2019-06-10] MEDS ORDERED: NALOXONE 0.4 MG/ML 1 ML VIAL IV PRN (13:12)
[2019-06-10] MEDS ORDERED: METOCLOPRAMIDE 5 MG/ML 2 ML VIAL IVP PRN (13:12)
[2019-06-10] MEDS ORDERED: SIMETHICONE 80 MG CHEWABLE PO PRN (13:12)
[2019-06-10] MEDS ORDERED: diphenhydrAMINE 50 MG CAP PO PRN (13:12)
[2019-06-10] MEDS ORDERED: diphenhydrAMINE 25 MG CAP PO PRN (13:12)
[2019-06-10] MEDS ORDERED: OXYTOCIN 20 UNITS/1000 ML NS 1,000 ML IV SCH (13:15)
--- NOTE | 2019-06-10 13:15 | P.OP ---
Date of Procedure: 06/10/19 Preoperative Diagnosis: 1. 37 weeks 2. Previous section 3. Mild preeclampsia Postoperative Diagnosis: 1. 37 weeks 2. Previous section 3. Mild preeclampsia Procedure(s) Performed: Repeat low transverse Anesthesia: spinal Surgeon: Lou Olvera Backup Engineer #1: Altagracia Manley Estimated Blood Loss (ml): 300 IV fluids (ml): 900 Urine output (ml): 400 Pathology: other (Placenta) Condition: stable Disposition: floor Operative Findings: Normal uterus, tubes, ovaries. Viable infant Apgars 9, 9, weight 6 lbs. 3 oz. Description of Procedure: Patient was taken to the operating room where spinal anesthesia was found be adequate. She was prepped and draped in normal sterile fashion in dorsal supine position with a leftward tilt. Pfannenstiel skin incision was made the scalpel and carried through to the underlying layer of fascia with the scalpel. Fascia was incised in midline and carried bilaterally with the Mclaughlin scissors. The sup erior aspect of the fascial incision was grasped with Graettinger clamps elevated and the underlying rectus muscles dissected off with the Mclaughlin's. Attention was then turned to inferior aspect of same incision which in a similar fashion was grasped tented up and the underlying rectus muscles dissected off with the Mclaughlin's. The rectus muscles were the midline and the peritoneum was identified tented up and entered sharply with the scalpel. The incision was extended superiorly and inferiorly with good visualization of the bladder. The bladder blade was inserted and the vesicouterine peritoneum was incised the Metzenbaums then carried bilaterally and bladder flap created digitally. A low transverse incision was then made on the uterus with the scalpel. This was carried bilaterally and digital manner. 's head delivered atraumatically, nose and mouth bulb suctioned, cord clamped and cut, handed off to waiting nurses. Apgars 9,9, weight 6 lbs. 3 oz. Placenta delivered manually, intact with three-vessel cord. The uterus is exteriorized and cleared of all clots and debris. The uterine incision was closed with 0 Vicryl in a running locked fashion. Second layer of the same sutures used in imbricating fashion to obtain excellent hemostasis. Bladder flap was then reapproximated using 2-0 Vicryl in a running fashion. Both ovaries and tubes appeared normal. The uterus was placed back into the abdomen. The peritoneum was reapproximated using 2-0 Vicryl in a running fashion. The muscles were reapproximated using 2- 0 Vicryl in interrupted fashion. The fascia was reapproximated using 0 Vicryl in a running fashion. The subcutaneous tissues closed with 3-0 Vicryl running fashion. The skin was closed estee. Patient tolerated the procedure well, sponge and instrument counts were correct times 2 and she was taken to the recovery room in stable condition.
[2019-06-10 19:26] LABS: Total Volume 24 Hour,Urine 2150 mls (800-1800)
[2019-06-10 19:50] LABS: Total Protein 24 Hour,Urine 301 mg/24hr (42.0-225.0)
[2019-06-10] MEDS: SENNOSIDES-DOCUSATE SODIUM 1 EACH TAB PO SCH (23:29)
[2019-06-11] MEDS: LACTATED RINGERS 1,000 ML IV SCH (05:48)
[2019-06-11] MEDS: SENNOSIDES-DOCUSATE SODIUM 1 EACH TAB PO SCH ×2 (07:31→20:18)
[2019-06-11] MEDS: HYDROcodone/APAP 7.5-325MG 1 EACH TAB PO PRN ×3 (07:32→22:51)
[2019-06-11 07:33] LABS: Basophils % (A) 0 %; Eosinophils # (A) 0.1 k/uL (0-0.7); Eosinophils % (A) 1 %; HCT 32.4 % (34.0-46.0); HGB 10.9 gm/dL (11.4-16.0); Lymphocytes # (A) 1.8 k/uL (1.0-4.8); Lymphocytes % (A) 15 %; MCH 31.3 pg (25.0-35.0); MCHC 33.7 g/dL (31.0-37.0); MCV 92.8 fL (80.0-100.0); Mean Platelet Volume 6.6; Monocytes # (A) 0.7 k/uL (0-1.0); Monocytes % (A) 6 %; Neutrophils # (A) 9.5 k/uL (1.3-7.7); Neutrophils % (A) 76 %; Platelet Count 256 k/uL (150-450); RBC 3.49 m/uL (3.80-5.40); RDW 13.2 % (11.5-15.5); WBC 12.4 k/uL (3.8-10.6)
--- NOTE | 2019-06-11 08:13 | P.PNOBGPC ---
Subjective - Subjective Principal diagnosis: S/P RLTCS POD #1 Interval history: Pt seen and examined. Feeling well. Denies N/V, F/C, CP, SOB, calf pain. She is c/o pruritis from the duramorph. Tolerating clears, no flatus. Patient reports: Reports appetite normal, Reports voiding normally, Reports pain well controlled, Reports ambulating normally : doing well Objective - Vital Signs Latest vital signs: Vital Signs Temp Pulse Resp BP Pulse Ox 06/11/19 04:00 98.7 F 77 16 118/64 99 06/11/19 00:00 97.9 F 88 16 131/68 98 06/10/19 20:00 97.4 F L 83 16 120/59 97 06/10/19 15:15 96.7 F L 77 16 127/59 06/10/19 14:45 98.0 F 70 16 126/68 96 06/10/19 14:15 97.2 F L 65 16 117/63 97 06/10/19 14:00 97.8 F 71 16 128/60 97 06/10/19 13:45 96.7 F L 72 16 130/66 99 06/10/19 13:30 97.1 F L 79 16 116/70 96 06/10/19 13:15 97.3 F L 82 16 134/72 98 Intake and Output 06/10/19 06/11/19 06/11/19 22:59 06:59 14:59 Output Total 452 450 Balance -452 -450 Output: Urine 450 450 Uretheral (Castillo) 150 Emesis 2 Other: # Voids 1 - Exam Lungs: bilateral: normal Chest: Normal S1, Normal S2 Extremities: Present: normal Abdomen: Present: normal appearance, soft. Absent: distention, tenderness Incision: Present: normal, dry, intact Uterus: Present: normal, firm - Labs Labs: Abnormal Lab Results - Last 24 Hours (Table) 06/10/19 06/11/19 Range/Units 13:50 06:39 WBC 12.4 H (3.8-10.6) k/uL RBC 3.49 L (3.80-5.40) m/uL Hgb 10.9 L (11.4-16.0) gm/dL Hct 32.4 L (34.0-46.0) % Neutrophils # 9.5 H (1.3-7.7) k/uL Ur 24 Hour Volume 2150 H (800-1800) mls U Tot Protein 24h, Calc 301 H (42.0-225.0) mg/24hr Assessment and Plan (1) Status post repeat low transverse section Current Visit: Yes Status: Acute Code(s): Z98.891 - HISTORY OF UTERINE SCAR FROM PREVIOUS SURGERY SNOMED Code(s): 722362455 (2) Pre-eclampsia Current Visit: Yes Status: Acute Code(s): O14.90 - UNSPECIFIED PRE- ECLAMPSIA, UNSPECIFIED TRIMESTER SNOMED Code(s): 460997852 Plan: 1. cont po care 2. increase ambulation 3. reg diet with flatus
--- NOTE | 2019-06-11 08:53 | P.PN ---
Progress Note - Text Progress Note Date: 06/11/19 Postoperative day 1 status post section under spinal anesthesia, and i ntrathecal morphine given for postoperative analgesia, patient doing well, there is no anesthesia related complications, Patient had no headache, vital signs stable , Assessment and plan= postop day 1 status post , doing well there is no anesthesia related complication.
[2019-06-11] MEDS: IBUPROFEN 600 MG TAB PO PRN ×2 (11:00→20:17)
[2019-06-12] MEDS: IBUPROFEN 600 MG TAB PO PRN ×3 (03:46→14:56)
[2019-06-12 08:24] VITALS: RESP 16
[2019-06-12] MEDS: SENNOSIDES-DOCUSATE SODIUM 1 EACH TAB PO SCH (08:31)
[2019-06-12] MEDS: HYDROcodone/APAP 7.5-325MG 1 EACH TAB PO PRN (11:42)
[2019-06-12 15:52] VITALS: BP 126/79; PULSE 91; TEMP 98.7
== END 2019-06-12 17:00 | disposition home or self-care (01) | DRG 788 ==
LOC: FBPOP 10:45 → 4FBP 13:52
PROVIDERS: ADMIT Obstetrics & Gynecology; ATTEND Obstetrics & Gynecology
PROC: 10D00Z1 Extraction of Products of Conception, Low, Open Approach (ICD-10-PCS; principal; 2019-06-10 12:32)
DX: O14.04 Mild to moderate pre-eclampsia, complicating childbirth (principal); O34.211 Maternal care for low transverse scar from previous cesarean delivery; F17.200 Nicotine dependence, unspecified, uncomplicated; O99.324 Drug use complicating childbirth; O99.334 Smoking (tobacco) complicating childbirth; F12.90 Cannabis use, unspecified, uncomplicated; Z3A.37 37 weeks gestation of pregnancy; Z37.0 Single live birth; Z82.49 Family history of ischemic heart disease and other diseases of the circulatory system
CPT/HCPCS: 59025; 81001; 81050; 82565; 82570; 83615; 84156; 84450; 84460; 84550; 85025; 85610; 85730; 86850; 86900; 86901; 88307; 99215

== ENCOUNTER 2020-05-25 15:35 | Emergency (ER) | payer OTHER ==
[2020-05-25 15:45] VITALS: BP 155/86; PULSE 75; RESP 18; TEMP 98.7
--- NOTE | 2020-05-25 16:04 | ED ---
Eye Problem HPI - General Chief complaint: Eye Problems Stated complaint: bilat eye burning Time Seen by Provider: 05/25/20 15:52 Source: patient Mode of arrival: ambulatory Limitations: no limitations - History of Present Illness Initial comments: Patient is a 30-year-old female presenting to emergency Department with a chief complaint of itching in both eyes. Patient reports this started about 2 hours prior to arrival. Patient states she went to [employer] pick[place] her daughter and developed itchiness in both of her eyes which eventually caused him to turn red. Patient reports there is some clear bilateral discharge and excessive tearing. She denies any yellow discharge. She denies any pain with extra ocular movements. Does report some puffiness in the eyes, particularly on the left side. Denies any night sweats fevers or chills. States she was not in contact with anybody with conjunctivitis. - Related Data Home Medications Medication Instructions Recorded Confirmed Pnv,Calcium 72/Iron/Folic Acid 1 tab PO DAILY 09/06/15 06/09/19 [ Plus Tablet] Previous Rx's Medication Instructions Recorded HYDROcodone/APAP 7.5-325MG [[place] 1 each PO Q6H PRN #12 tab 06/12/19 7.5-325] Ibuprofen [Motrin] 600 mg PO Q6HR PRN #30 tab 06/12/19 Erythromycin Ophth Oint [Romycin 1 applic BOTH EYES QID #1 bottle 05/25/20 Ophth Oint] Ketotifen 0.025% Ophth Soln 1 drop BOTH EYES BID #1 bottle 05/25/20 [Zaditor] Allergies Allergy/AdvReac Type Severity Reaction Status Date / Time No Known Allergies Allergy Verified 05/25/20 15:45 Review of Systems ROS Statement: Those systems with pertinent positive or pertinent negative responses have been documented in the HPI. ROS Other: All systems not noted in ROS Statement are negative. Past Medical History Past Medical History: No Reported History Additional Past Medical History / Comment(s): MRSA, mental health illness, UTIs History of Any Multi-Drug Resistant Organisms: MRSA Date of last positivie culture/infection: 10/2014 MDRO Source:: skin, was on her thighs, buttocks, and back Past Surgical History: Appendectomy, Section, Cholecystectomy, Orthopedic Surgery Additional Past Surgical History / Comment(s): multiple bilateral knee surgeries Past Anesthesia/Blood Transfusion Reactions: No Reported Reaction Past Psychological History: Bipolar Smoking Status: Current every day smoker Past Alcohol Use History: Occasional Past Drug Use History: Marijuana - Past Family History Mother Family Medical History: Fibromyalgia Father History Unknown: Yes Family Medical History: Congestive Heart Failure (CHF), Hypertension General Exam Limitations: no limitations General appearance: alert, in no apparent distress Head exam: Present: atraumatic, normocephalic, normal inspection Eye exam: Present: normal appearance, PERRL, EOMI, conjunctival injection (Santos ateral), periorbital swelling (Mild or orbital swelling the left eye), other (Excessive tearing) Pupils: Present: normal accommodation ENT exam: Present: normal exam, normal oropharynx, mucous membranes moist, TM's normal bilaterally, normal external ear exam Neck exam: Present: normal inspection, full ROM. Absent: tenderness Respiratory exam: Present: normal lung sounds bilaterally. Absent: respiratory distress, wheezes, rales Cardiovascular Exam: Present: regular rate, normal rhythm, normal heart sounds Extremities exam: Present: normal inspection, full ROM, normal capillary refill. Absent: tenderness Back exam: Present: normal inspection, full ROM. Absent: tenderness, CVA tenderness (R), CVA tenderness (L) Neurological exam: Present: alert, oriented X3, CN II-XII intact, normal gait Psychiatric exam: Present: normal affect, normal mood. Absent: anxious, flat affect Skin exam: Present: warm, dry, intact, normal color Course Vital Signs 05/25/ 15:42 Temperature 98.7 F Pulse Rate 75 Respiratory 18 Rate Blood Pressure 155/86 O2 Sat by Pulse 99 Oximetry Medical Decision Making - Medical Decision Making patient is a 30-year-old female presenting to the emergency Department with a chief complaint of itching in the eyes. On physical examination, patient has bilateral conjunctival injections that spare the limbus. I suspect this is more of a viral conjunctivitis versus bacterial. Patient will be started on ketotifen eyedrops and erythromycin ointment. I emphasized importance of hand hygiene. Advised that she return to emergency department if symptoms worsen. I also advised to follow-up with an inspector set up and lay out. Strict return parameters were thoroughly discussed the patient was understanding and agreeable. Case discussed with physician. Disposition Clinical Impression: Conjunctivitis, acute, bilateral Disposition: HOME SELF-CARE Condition: Stable Instructions (If sedation given, give patient instructions): Conjunctivitis (ED) Additional Instructions: Hand hygiene is very important. Take prescribed medication as directed. Apply cold compress to both eyes to help with the swelling. Return to emergency department if symptoms worsen. Prescriptions: Polymyxin B-Trimeth Sulf Ophth [Polytrim Opthalmic] 1 drops BOTH EYES Q4H #1 bottle Erythromycin Ophth Oint [Romycin Ophth Oint] 1 applic BOTH EYES QID #1 bottle Ketotifen 0.025% Ophth Soln [Zaditor] 1 drop BOTH EYES BID #1 bottle Is patient prescribed a controlled substance at d/c from ED?: No Referrals: Lee Ann Tuttle MD [Primary Care Provider] - 1-2 days Time of Disposition: 16:04
== END 2020-05-25 16:00 | disposition home or self-care (01) ==
LOC: EC 15:35
DX: H10.33 Unspecified acute conjunctivitis, bilateral (principal); F17.200 Nicotine dependence, unspecified, uncomplicated; Z86.14 Personal history of Methicillin resistant Staphylococcus aureus infection
CPT/HCPCS: 99283

== ENCOUNTER 2020-07-14 16:02 | Emergency (ER) | payer OTHER ==
[2020-07-14 16:17] VITALS: BP 177/98; PULSE 88; RESP 18; TEMP 98.7
[2020-07-14] MEDS ORDERED: HYDROcodone/APAP 10-325MG 1 EACH TAB PO ONE (16:31)
--- NOTE | 2020-07-14 16:38 | ED ---
Lower Extremity Injury HPI - General Chief Complaint: Extremity Injury, Lower Stated Complaint: slip & fall/ankle pain Time Seen by Provider: 07/14/20 16:20 Source: patient, RN notes reviewed Mode of arrival: wheelchair Limitations: no limitations - History of Present Illness Initial Comments: This is a 30-year-old female presents emergency Department chief complaint left ankle injury. Patient states she replaced somewhat after leaving work injuring her left ankle. Patient's had no prior left ankle fractures. No paresthesias. There is small abrasion she up-to-date on her vaccinations. Denies any other significant injury no head injury no loss conscious. - Related Data Home Medications Medication Instructions Recorded Confirmed Pnv,Calcium 72/Iron/Folic Acid 1 tab PO DAILY 09/06/15 06/09/19 [ Plus Tablet] Previous Rx's Medication Instructions Recorded HYDROcodone/APAP 7.5-325MG [[place] 1 each PO Q6H PRN #12 tab 06/12/19 7.5-325] Ibuprofen [Motrin] 600 mg PO Q6HR PRN #30 tab 06/12/19 Erythromycin Ophth Oint [Romycin 1 applic BOTH EYES QID #1 bottle 05/25/20 Ophth Oint] Ketotifen 0.025% Ophth Soln 1 drop BOTH EYES BID #1 bottle 05/25/20 [Zaditor] Allergies Allergy/AdvReac Type Severity Reaction Status Date / Time No Known Allergies Allergy Verified 07/14/20 16:17 Review of Systems ROS Statement: Those systems with pertinent positive or pertinent negative responses have been documented in the HPI. ROS Other: All systems not noted in ROS Statement are negative. Past Medical History Past Medical History: No Reported History Additional Past Medical History / Comment(s): MRSA, mental health illness, UTIs History of Any Multi-Drug Resistant Organisms: MRSA Date of last positivie culture/infection: 10/2014 MDRO Source:: skin, was on her thighs, buttocks, and back Past Surgical History: Appendectomy, Section, Cholecystectomy, Orthopedic Surgery Additional Past Surgical History / Comment(s): multiple bilateral knee surgeries Past Anesthesia/Blood Transfusion Reactions: No Reported Reaction Past Psychological History: Bipolar Smoking Status: Current every day smoker Past Alcohol Use History: Occasional Past Drug Use History: Marijuana - Past Family History Mother Family Medical History: Fibromyalgia Father History Unknown: Yes Family Medical History: Congestive Heart Failure (CHF), Hypertension General Exam Limitations: no limitations General appearance: alert, in no apparent distress Head exam: Present: atraumatic, normocephalic, normal inspection Eye exam: Present: normal appearance, PERRL, EOMI. Absent: scleral icterus, conjunctival injection, periorbital swelling ENT exam: Present: normal exam, normal oropharynx, mucous membranes moist Respiratory exam: Present: normal lung sounds bilaterally. Absent: respiratory distress, wheezes, rales, rhonchi, stridor Cardiovascular Exam: Present: regular rate, normal rhythm, normal heart sounds. Absent: systolic murmur, diastolic murmur, rubs, gallop, clicks Extremities exam: Present: other (Left ankle tenderness of the lateral malleoli region, no foot tenderness neurovascular intact Refill less than 2 seconds rate) Neurological exam: Present: alert, reflexes normal. Absent: motor sensory deficit Skin exam: Present: warm, dry, intact, normal color. Absent: rash Course Vital Signs 07/14/20 16:15 Temperature 98.7 F Pulse Rate 88 Respiratory 18 Rate Blood Pressure 177/98 O2 Sat by Pulse 99 Oximetry Medical Decision Making - Medical Decision Making 30-year-old presented for fall, left ankle injury x-rays unremarkable. Patient is left ankle sprain patient was placed in a [facility] will follow-up with orthopedics if no improvement. Disposition Clinical Impression: Left ankle sprain Disposition: HOME SELF-CARE Condition: Stable Instructions (If sedation given, give patient instructions): Ankle Sprain (ED) Additional Instructions: Please return to the Emergency Department if symptoms worsen or any other concerns. Is patient prescribed a controlled substance at d/c from ED?: No Referrals: Lee Ann Tuttle MD [Primary Care Provider] - 1-2 days Clementina Morton DO [Doctor of Osteopathic Medicine] - 1-2 days Time of Disposition: 17:18
--- NOTE | 2020-07-14 17:10 | XR ---
EXAMINATION TYPE: XR ankle complete LT DATE OF EXAM: 07/14/2020 COMPARISON: NONE HISTORY: Ankle pain TECHNIQUE: 3 views FINDINGS: Ankle mortise is anatomic. I see no fracture nor dislocation. Joint spaces are normal. IMPRESSION: Negative left ankle exam.
== END 2020-07-14 17:38 | disposition home or self-care (01) ==
LOC: EC 16:02
DX: S93.402A Sprain of unspecified ligament of left ankle, initial encounter (principal); F17.200 Nicotine dependence, unspecified, uncomplicated; W01.0XXA Fall on same level from slipping, tripping and stumbling without subsequent striking against object, initial encounter
CPT/HCPCS: 99283

== ENCOUNTER 2021-03-15 15:13 | Emergency (ER) | payer OTHER ==
[2021-03-15 15:59] VITALS: RESP 18
[2021-03-15 16:44] LABS: Basophils # (A) 0.1 k/uL (0-0.2); Basophils % (A) 1 %; Eosinophils # (A) 0.1 k/uL (0-0.7); Eosinophils % (A) 1 %; HCT 45.4 % (34.0-46.0); HGB 15.2 gm/dL (11.4-16.0); Lymphocytes # (A) 2.8 k/uL (1.0-4.8); Lymphocytes % (A) 24 %; MCH 31.4 pg (25.0-35.0); MCHC 33.5 g/dL (31.0-37.0); MCV 93.8 fL (80.0-100.0); Mean Platelet Volume 7.6; Monocytes # (A) 0.6 k/uL (0-1.0); Monocytes % (A) 5 %; Neutrophils % (A) 68 %; Platelet Count 287 k/uL (150-450); RBC 4.84 m/uL (3.80-5.40); RDW 13.3 % (11.5-15.5); WBC 11.7 k/uL (3.8-10.6)
[2021-03-15 16:47] LABS: Appearance,Urine Clear (Clear); Bacteria,Urine Rare /hpf; Bilirubin,Urine Negative (Negative); Blood,Urine Large (Negative); Color,Urine Yellow; Glucose,Urine (UA) Negative (Negative); Ketones,Urine Negative (Negative); Leukocyte Esterase,Urine Small (Negative); Mucus,Urine Occasional /hpf; Nitrite,Urine Negative (Negative); PH, Urine 5.5 (5.0-8.0); Protein,Urine Negative (Negative); RBC,Urine 78 /hpf (0-5); Specific Gravity,Urine 1.013 (1.001-1.035); Squamous Epithelial Cell,Urine 4 /hpf (0-4); Urobilinogen,Urine <2.0 mg/dL (<2.0); WBC,Urine 19 /hpf (0-5)
--- NOTE | 2021-03-15 17:03 | ED ---
Female Urogenital HPI - General Chief complaint: Vaginal Bleeding Stated complaint: 6 wks prg, Bleeding and cramping Source: patient Mode of arrival: ambulatory Limitations: no limitations - History of Present Illness Initial comments: 31-year-old female who is currently approximately 6 weeks who presents to the emergency department with reported vaginal bleeding. States that she had her last menstrual cycle on January 27. Her Implanon was removed during the first week of February. She took a home test last week and found out that she was . She has yet to see a physician for care. Normally follows with Dr. Olvera with her other 2 pregnancies. She called to make an appointment however she is awaiting a call back. She states that she's had very light pink tinged bleeding which will occasionally become heavier. She has associated suprapubic and bilateral abdominal cramping. She has had some nausea without vomiting. No fevers or chills. No additional abnormal vaginal discharge or concern for sexual transmitted infections. No dysuria, hematuria or difficulty voiding. No changes in her bowel habits. Patient is an A+ blood type. No other alleviating, precipitating or modifying factors - Related Data Previous Rx's Medication Instructions Recorded Cephalexin [Keflex] 500 mg PO BID 1 Days #14 cap 03/15/21 Metoclopramide [Reglan] 10 mg PO TID PRN #15 tab 03/15/21 Pnv No.95/Ferrous Fum/Folic AC 1 each PO DAILY #30 tablet 03/15/21 [ Multivitamin Tablet] Allergies Allergy/AdvReac Type Severity Reaction Status Date / Time No Known Allergies Allergy Verified 03/15/21 16:41 Review of Systems ROS Statement: Those systems with pertinent positive or pertinent negative responses have been documented in the HPI. ROS Other: All systems not noted in ROS Statement are negative. Past Medical History Past Medical History: No Reported History Additional Past Medical History / Comment(s): MRSA, mental health illness, UTIs History of Any Multi-Drug Resistant Organisms: MRSA Date of last positivie culture/infection: 10/2014 MDRO Source:: skin, was on her thighs, buttocks, and back Past Surgical History: Appendectomy, Section, Cholecystectomy, Orthopedic Surgery Additional Past Surgical History / Comment(s): multiple bilateral knee surgeries Past Anesthesia/Blood Transfusion Reactions: No Reported Reaction Past Psychological History: Bipolar Smoking Status: Current every day smoker Past Alcohol Use History: Occasional Past Drug Use History: Marijuana - Past Family History Mother Family Medical History: Fibromyalgia Father History Unknown: Yes Family Medical History: Congestive Heart Failure (CHF), Hypertension General Exam Limitations: no limitations General appearance: alert, in no apparent distress Head exam: Present: atraumatic, normocephalic, normal inspection Eye exam: Present: normal appearance, PERRL, EOMI. Absent: scleral icterus, conjunctival injection, periorbital swelling ENT exam: Present: normal exam, mucous membranes moist Neck exam: Present: normal inspection. Absent: tenderness, meningismus, lymphadenopathy Respiratory exam: Present: normal lung sounds bilaterally. Absent: respiratory distress, wheezes, rales, rhonchi, stridor Cardiovascular Exam: Present: regular rate, normal rhythm, normal heart sounds. Absent: systolic murmur, diastolic murmur, rubs, gallop, clicks GI/Abdominal exam: Present: soft, tenderness (Suprapubic and bilateral lower quadrants), normal bowel sounds. Absent: distended, guarding, rebound, rigid Extremities exam: Present: normal inspection, full ROM, normal capillary refill. Absent: tenderness, pedal edema, joint swelling, calf tenderness Back exam: Present: normal inspection Neurological exam: Present: alert, oriented X3, CN II-XII intact Psychiatric exam: Present: normal affect, normal mood Skin exam: Present: warm, dry, intact, normal color. Absent: rash Course Vital Signs 03/15/21 03/15/21 15:54 17:34 Temperature 98.7 F 98.5 F Pulse Rate 82 78 Respiratory 18 18 Rate Blood Pressure 150/86 168/93 O2 Sat by Pulse 98 100 Oximetry Medical Decision Making - Medical Decision Making Upon arrival patient is placed in room 21. Thorough history and physical exam was performed. Laboratory scissor conducted the patient had an ultrasound performed. Lab studies are remarkable for a beta quant of 264. Urinalysis is positive for 78 red blood cells, 19 white blood cells and rare bacteria. She is given a dose of Keflex. Blood type is A+. Ultrasound fails to demonstrate an IUP. Results are discussed with the patient. Patient is given a prescription for a beta Quant to be drawn in 2 days. Instructed that she needs to have her blood drawn to ensure that her beta Quant is doubling. If this is the case the patient will need a repeat ultrasound at her [employer] ENGINEER's discretion to insure that her is progressing as appropriate. She is informed that if her beta Quant is not doubling appropriately or is falling that she is having a miscarri age. Her beta Quant will need to be followed to 0. She is to call her [employer]IN[employer] ENGINEER in the morning to make an appointment. Return to the emergency room for any worsening symptoms. Patient is discharged home in stable condition - Lab Data Result diagrams: 03/15/21 16:25 03/15/21 16:25 Lab Results 03/15/21 03/15/21 03/15/21 Range/Units 16:25 16:25 16:25 WBC 11.7 H (3.8-10.6) k/uL RBC 4.84 (3.80-5.40) m/uL Hgb 15.2 (11.4-16.0) gm/dL Hct 45.4 (34.0-46.0) % MCV 93.8 (80.0-100.0) fL MCH 31.4 (25.0-35.0) pg MCHC 33.5 (31.0-37.0) g/dL RDW 13.3 (11.5-15.5) % Plt Count 287 (150-450) k/uL MPV 7.6 Neutrophils % 68 % Lymphocytes % 24 % Monocytes % 5 % Eosinophils % 1 % Basophils % 1 % Neutrophils # 8.0 H (1.3-7.7) k/uL Lymphocytes # 2.8 (1.0-4.8) k/uL Monocytes # 0.6 (0-1.0) k/uL Eosinophils # 0.1 (0-0.7) k/uL Basophils # 0.1 (0-0.2) k/uL Sodium 138 (137-145) mmol/L Potassium 3.4 L (3.5-5.1) mmol/L Chloride 109 H (98-107) mmol/L Carbon Dioxide 20 L (22-30) mmol/L Anion Gap 9 mmol/L BUN 7 (7-17) mg/dL Creatinine 0.59 (0.52-1.04) mg/dL Est GFR (CKD-EPI)AfAm >90 (>60 ml/min/1.73 sqM) Est GFR (CKD-EPI)NonAf >90 (>60 ml/min/1.73 sqM) Glucose 151 H (74-99) mg/dL Calcium 9.4 (8.4-10.2) mg/dL Total Bilirubin 0.2 (0.2-1.3) mg/dL AST 26 (14-36) U/L ALT 27 (4-34) U/L Alkaline Phosphatase 58 (38-126) U/L Total Protein 6.6 (6.3-8.2) g/dL Albumin 3.8 (3.5-5.0) g/dL HCG, Quant 264.0 mIU/mL Urine Color Yellow Urine Appearance Clear (Clear) Urine pH 5.5 (5.0-8.0) Ur Specific [place] 1.013 (1.001-1.035) Urine Protein Negative (Negative) Urine Glucose (UA) Negative (Negative) Urine Ketones Negative (Negative) Urine Blood Large H (Negative) Urine Nitrite Negative (Negative) Urine Bilirubin Negative (Negative) Urine Urobilinogen <2.0 (<2.0) mg/dL Ur Leukocyte Esterase Small H (Negative) Urine RBC 78 H (0-5) /hpf Urine WBC 19 H (0-5) /hpf Ur Squamous Epith Cells 4 (0-4) /hpf Urine Bacteria Rare H (None) /hpf Urine Mucus Occasional H (None) /hpf Blood Type Blood Type Recheck Bld Type Recheck Status 03/15/21 Range/Units 16:25 WBC (3.8-10.6) k/uL RBC (3.80-5.40) m/uL Hgb (11.4-16.0) gm/dL Hct (34.0-46.0) % MCV (80.0-100.0) fL MCH (25.0-35.0) pg MCHC (31.0-37.0) g/dL RDW (11.5-15.5) % Plt Count (150-450) k/uL MPV Neutrophils % % Lymphocytes % % Monocytes % % Eosinophils % % Basophils % % Neutrophils # (1.3-7.7) k/uL Lymphocytes # (1.0-4.8) k/uL Monocytes # (0-1.0) k/uL Eosinophils # (0-0.7) k/uL Basophils # (0-0.2) k/uL Sodium (137-145) mmol/L Potassium (3.5-5.1) mmol/L Chloride (98-107) mmol/L Carbon Dioxide (22-30) mmol/L Anion Gap mmol/L BUN (7-17) mg/dL Creatinine (0.52-1.04) mg/dL Est GFR (CKD-EPI)AfAm (>60 ml/min/1.73 sqM) Est GFR (CKD-EPI)NonAf (>60 ml/min/1.73 sqM) Glucose (74-99) mg/dL Calcium (8.4-10.2) mg/dL Total Bilirubin (0.2-1.3) mg/dL AST (14-36) U/L ALT (4-34) U/L Alkaline Phosphatase (38-126) U/L Total Protein (6.3-8.2) g/dL Albumin (3.5-5.0) g/dL HCG, Quant mIU/mL Urine Color Urine Appearance (Clear) Urine pH (5.0-8.0) Ur Specific [place] (1.001-1.035) Urine Protein (Negative) Urine Glucose (UA) (Negative) Urine Ketones (Negative) Urine Blood (Negative) Urine Nitrite (Negative) Urine Bilirubin (Negative) Urine Urobilinogen (<2.0) mg/dL Ur Leukocyte Esterase (Negative) Urine RBC (0-5) /hpf Urine WBC (0-5) /hpf Ur Squamous Epith Cells (0-4) /hpf Urine Bacteria (None) /hpf Urine Mucus (None) /hpf Blood Type A Positive Blood Type Recheck A Pos Bld Type Recheck Status No Disposition Clinical Impression: UTI (urinary tract infection), Threatened in first trimester Disposition: HOME SELF-CARE Condition: Stable Instructions (If sedation given, give patient instructions): Threatened Miscarriage (ED) Additional Instructions: Please return to the outpatient lab on the for repeat blood draw. The results will be sent to your [employer]INE[employer]. You will need to have serial beta quant levels to ensure they are either doubling or return to zero. You will also need a repeat ultrasound by your OBGYN. Return to the emergency room for any new or worsening symptoms Prescriptions: Cephalexin [Keflex] 500 mg PO BID 1 Days #14 cap Pnv No.95/Ferrous Fum/Folic AC [ Multivitamin Tablet] 1 each PO DAILY #30 tablet Metoclopramide [Reglan] 10 mg PO TID PRN #15 tab PRN Reason: GERD Is patient prescribed a controlled substance at d/c from ED?: No Referrals: Lee Ann Tuttle MD [Primary Care Provider] - 1-2 days Lou Olvera DO [Doctor of Osteopathic Medicine] - 1-2 days Time of Disposition: 17:57
[2021-03-15 17:04] LABS: ALT 27 U/L (4-34); AST 26 U/L (14-36); African American GFR (CKD) >90 (>60 ml/min/1.73 sqM); Albumin 3.8 g/dL (3.5-5.0); Alkaline Phosphatase 58 U/L (38-126); Anion Gap 9 mmol/L; Blood Urea Nitrogen 7 mg/dL (7-17); Calcium 9.4 mg/dL (8.4-10.2); Carbon Dioxide 20 mmol/L (22-30); Chloride 109 mmol/L (98-107); Glucose 151 mg/dL (74-99); Non-African American GFR(CKD) >90 (>60 ml/min/1.73 sqM); Potassium 3.4 mmol/L (3.5-5.1); Sodium 138 mmol/L (137-145); Total Bilirubin 0.2 mg/dL (0.2-1.3); Total Protein 6.6 g/dL (6.3-8.2)
[2021-03-15] MEDS ORDERED: CEPHALEXIN 500 MG CAP PO STA (17:19)
[2021-03-15 17:35] VITALS: PULSE 78; TEMP 98.5
[2021-03-15 17:36] VITALS: BP 168/93
--- NOTE | 2021-03-15 17:49 | US ---
EXAMINATION TYPE: Transabdominal DATE OF EXAM: 03/15/2021 5:14 PM COMPARISON: NONE CLINICAL HISTORY: pain. Spotting. Patient states she had a positive test. EXAM PERFORMED: Transabdominal (TA) EXAM MEASUREMENTS: GESTATIONAL AGE / DATING Physician Established: Not yet established Dates by LMP: (6 weeks/5 days) EDC: 11/03/2021 Dates by First Scan: No previous this is first scan Dates by Current Scan for: No IUP seen at this time MATERNAL ANATOMY Uterus: 8.6 x 5.4 x 4.6 cm Right Ovary: 3.0 x 2.2 x 1.8 cm Left Ovary: 2.7 x 2.7 x 2.2 cm Left dominant follicle = 2.0 cm Post CDS / Adnexa: no Presence of free fluid: no GESTATION / SURVEY IUP: No IUP seen at this time Date of LMP: 01/27/2021, Beta HcG (if available): 264.0 No GS, YS or CRL visualized at this time. Endometrium = 0.4 cm. IMPRESSION: No evidence of intrauterine or acute abnormality. Recommend serial beta hCG measurement and follow-up imaging as indicated.
== END 2021-03-15 18:30 | disposition home or self-care (01) ==
LOC: EC 15:13
DX: O20.0 Threatened abortion (principal); O23.41 Unspecified infection of urinary tract in pregnancy, first trimester; F17.200 Nicotine dependence, unspecified, uncomplicated; F12.90 Cannabis use, unspecified, uncomplicated; Z3A.01 Less than 8 weeks gestation of pregnancy; Z90.49 Acquired absence of other specified parts of digestive tract
CPT/HCPCS: 36415; 76801; 80053; 81001; 84702; 85025; 86900; 86901; 87086; 99284

== ENCOUNTER 2021-03-17 17:55 | Emergency (ER) | payer OTHER ==
[2021-03-17 18:27] VITALS: BP 109/73; PULSE 80; RESP 17; TEMP 98.9
--- NOTE | 2021-03-17 18:55 | ED ---
General Adult HPI - General Chief complaint: Vaginal Bleeding Stated complaint: Abdominal Pain/Vaginal Bleeding Time Seen by Provider: 03/17/21 18:32 Source: patient Mode of arrival: ambulatory Limitations: no limitations - History of Present Illness Initial comments: Dictation was produced using [employer] dictation software. please excuse any grammatical, word or spelling errors. Chief Complaint: 31-year-old female presents emergency department for lower back pain and continued vaginal bleeding History of Present Illness: Patient's 31-year-old female she was evaluated 2 days ago for vaginal bleeding and . Patient is allegedly 4 weeks based on last menstrual cycle. Patient was seen 2 days ago her ultrasound showed no intrauterine however her beta Quant was only measured to be 264. Since 2 days ago patient is continued bleeding. She states that she has worsening pain to her lower back and continued bleeding. She states that she's been soaking through couple pads a day. The ROS documented in this emergency department record has been reviewed and confirmed by me. Those systems with pertinent positive or negative responses have been documented in the HPI. All other systems are other negative and/or noncontributory. PHYSICAL EXAM: General Impression: Alert and oriented x3, not in acute distress HEENT: Normocephalic atraumatic, extra-ocular movements intact, pupils equal and reactive to light bilaterally, mucous membranes moist. Cardiovascular: Heart regular rate and rhythm Chest: Able to complete full sentences, no retractions, no tachypnea Abdomen: abdomen soft, non-tender, non-distended, no organomegaly Musculoskeletal: Pulses present and equal in all extremities, no peripheral edema Motor: no focal deficits noted Neurological: CN II-XII grossly intact, no focal motor or sensory deficits noted Skin: Intact with no visualized rashes Psych: Normal affect and mood Exam: Refused ED course: 31-year-old female presents to the emergency department for vaginal bleeding and . Vital signs upon arrival are within acceptable limits. No evidence of intrauterine at this time. Left ovarian cyst. No fluid in the cul-de-sac. Laboratory evaluation obtained. CBC, metabolic panel is unremarkable. Urinalysis shows 31 white blood cells. Blood type is A+. Patient reevaluated at bedside at 8:54 PM found to be in stable medical condition. States he has some mild back pain that is also improved. Patient otherwise well-appearing. She is resident of [facility] with no signs of distress. Patient denies any pelvic pain. Clinical presentation concerning for miscarriage versus ectopic . Less likely be ectopic given that patient is benign appearing denies any significant vaginal bleeding or significant pelvic complaints. Furthermore Quant has not increased adequately. Case is discussed with Dr. Manley who is on-call for Dr. Olvera. She is agreeable with plan to discharge with follow-up. Patient given a lab slip to get her beta Quant drawn on Sunday. Patient given ectopic precautions. She is also instructed to follow-up with Dr. Olvera on Sunday - Related Data Previous Rx's Medication Instructions Recorded Cephalexin [Keflex] 500 mg PO BID 1 Days #14 cap 03/15/21 Metoclopramide [Reglan] 10 mg PO TID PRN #15 tab 03/15/21 Pnv No.95/Ferrous Fum/Folic AC 1 each PO DAILY #30 tablet 03/15/21 [ Multivitamin Tablet] Allergies Allergy/AdvReac Type Severity Reaction Status Date / Time No Known Allergies Allergy Verified 03/17/21 18:27 Review of Systems ROS Statement: Those systems with pertinent positive or pertinent negative responses have been documented in the HPI. ROS Other: All systems not noted in ROS Statement are negative. Past Medical History Past Medical History: No Reported History Additional Past Medical History / Comment(s): MRSA, mental health illness, UTIs History of Any Multi-Drug Resistant Organisms: MRSA Date of last positivie culture/infection: 10/2014 MDRO Source:: skin, was on her thighs, buttocks, and back Past Surgical History: Appendectomy, Section, Cholecystectomy, Orthopedic Surgery Additional Past Surgical History / Comment(s): multiple bilateral knee surgeries Past Anesthesia/Blood Transfusion Reactions: No Reported Reaction Past Psychological History: Bipolar Smoking Status: Current every day smoker Past Alcohol Use History: Occasional Past Drug Use History: Marijuana - Past Family History Mother Family Medical History: Fibromyalgia Father History Unknown: Yes Family Medical History: Congestive Heart Failure (CHF), Hypertension General Exam Limitations: no limitations Course Vital Signs 03/17/21 18:22 Temperature 98.9 F Pulse Rate 80 Respiratory 17 Rate Blood Pressure 109/73 O2 Sat by Pulse 97 Oximetry Medical Decision Making - Lab Data Result diagrams: 03/17/21 18:53 03/17/21 18:53 Lab Results 03/17/21 03/17/21 03/17/21 Range/Units 18:50 18:53 18:53 WBC 7.7 (3.8-10.6) k/uL RBC 4.96 (3.80-5.40) m/uL Hgb 15.5 (11.4-16.0) gm/dL Hct 46.2 H (34.0-46.0) % MCV 93.1 (80.0-100.0) fL MCH 31.2 (25.0-35.0) pg MCHC 33.6 (31.0-37.0) g/dL RDW 13.3 (11.5-15.5) % Plt Count 279 (150-450) k/uL MPV 7.8 Neutrophils % 60 % Lymphocytes % 26 % Monocytes % 7 % Eosinophils % 2 % Basophils % 1 % Neutrophils # 4.6 (1.3-7.7) k/uL Lymphocytes # 2.0 (1.0-4.8) k/uL Monocytes # 0.6 (0-1.0) k/uL Eosinophils # 0.2 (0-0.7) k/uL Basophils # 0.1 (0-0.2) k/uL Sodium 139 (137-145) mmol/L Potassium 3.1 L (3.5-5.1) mmol/L Chloride 107 (98-107) mmol/L Carbon Dioxide 24 (22-30) mmol/L Anion Gap 8 mmol/L BUN 5 L (7-17) mg/dL Creatinine 0.60 (0.52-1.04) mg/dL Est GFR (CKD-EPI)AfAm >90 (>60 ml/min/1.73 sqM) Est GFR (CKD-EPI)NonAf >90 (>60 ml/min/1.73 sqM) Glucose 115 H (74-99) mg/dL Calcium 9.6 (8.4-10.2) mg/dL HCG, Quant 311.5 mIU/mL Urine Color Urine Appearance (Clear) Urine pH (5.0-8.0) Ur Specific [place] (1.001-1.035) Urine Protein (Negative) Urine Glucose (UA) (Negative) Urine Ketones (Negative) Urine Blood (Negative) Urine Nitrite (Negative) Urine Bilirubin (Negative) Urine Urobilinogen (<2.0) mg/dL Ur Leukocyte Esterase (Negative) Urine RBC (0-5) /hpf Urine WBC (0-5) /hpf Ur Squamous Epith Cells (0-4) /hpf Calcium Oxalate Crystal (None) /hpf Urine Bacteria (None) /hpf Urine Mucus (None) /hpf Blood Type A Positive Blood Type Recheck A Pos Bld Type Recheck Status No Antibody Screen NEGATIVE Spec Expiration Date 03/20/2021 - 234903/17/21 Range/Units 20:22 WBC (3.8-10.6) k/uL RBC (3.80-5.40) m/uL Hgb (11.4-16.0) gm/dL Hct (34.0-46.0) % MCV (80.0-100.0) fL MCH (25.0-35.0) pg MCHC (31.0-37.0) g/dL RDW (11.5-15.5) % Plt Count (150-450) k/uL MPV Neutrophils % % Lymphocytes % % Monocytes % % Eosinophils % % Basophils % % Neutrophils # (1.3-7.7) k/uL Lymphocytes # (1.0-4.8) k/uL Monocytes # (0-1.0) k/uL Eosinophils # (0-0.7) k/uL Basophils # (0-0.2) k/uL Sodium (137-145) mmol/L Potassium (3.5-5.1) mmol/L Chloride (98-107) mmol/L Carbon Dioxide (22-30) mmol/L Anion Gap mmol/L BUN (7-17) mg/dL Creatinine (0.52-1.04) mg/dL Est GFR (CKD-EPI)AfAm (>60 ml/min/1.73 sqM) Est GFR (CKD-EPI)NonAf (>60 ml/min/1.73 sqM) Glucose (74-99) mg/dL Calcium (8.4-10.2) mg/dL HCG, Quant mIU/mL Urine Color Light Red Urine Appearance Cloudy H (Clear) Urine pH 5.5 (5.0-8.0) Ur Specific [place] 1.020 (1.001-1.035) Urine Protein 2+ H (Negative) Urine Glucose (UA) Negative (Negative) Urine Ketones Trace H (Negative) Urine Blood Large H (Negative) Urine Nitrite Negative (Negative) Urine Bilirubin Negative (Negative) Urine Urobilinogen 2.0 (<2.0) mg/dL Ur Leukocyte Esterase Small H (Negative) Urine RBC 10 H (0-5) /hpf Urine WBC 31 H (0-5) /hpf Ur Squamous Epith Cells 14 H (0-4) /hpf Calcium Oxalate Crystal Few H (None) /hpf Urine Bacteria Occasional H (None) /hpf Urine Mucus Many H (None) /hpf Blood Type Blood Type Recheck Bld Type Recheck Status Antibody Screen Spec Expiration Date Disposition Clinical Impression: Threatened miscarriage Disposition: HOME SELF-CARE Condition: Fair Instructions (If sedation given, give patient instructions): Ectopic (DC), Threatened Miscarriage (ED) Additional Instructions: Please seek medical attention with any symptoms of lightheadedness, lethargy, shortness of breath, feeling faint, worsening vaginal bleeding or significant pelvic pain. These could be signs that you are having ectopic . Otherwise it is important he follow-up with Dr. Olvera on Sunday. Please go to the lab department to get a blood draw on Sunday for another beta Quant. Is patient prescribed a controlled substance at d/c from ED?: No Referrals: Lou Olvera DO [Doctor of Osteopathic Medicine] - 03/21/21
[2021-03-17 19:13] LABS: Basophils # (A) 0.1 k/uL (0-0.2); Basophils % (A) 1 %; Eosinophils # (A) 0.2 k/uL (0-0.7); Eosinophils % (A) 2 %; HCT 46.2 % (34.0-46.0); HGB 15.5 gm/dL (11.4-16.0); Lymphocytes % (A) 26 %; MCH 31.2 pg (25.0-35.0); MCHC 33.6 g/dL (31.0-37.0); MCV 93.1 fL (80.0-100.0); Mean Platelet Volume 7.8; Monocytes # (A) 0.6 k/uL (0-1.0); Monocytes % (A) 7 %; Neutrophils # (A) 4.6 k/uL (1.3-7.7); Neutrophils % (A) 60 %; Platelet Count 279 k/uL (150-450); RBC 4.96 m/uL (3.80-5.40); RDW 13.3 % (11.5-15.5); WBC 7.7 k/uL (3.8-10.6)
[2021-03-17 19:23] LABS: African American GFR (CKD) >90 (>60 ml/min/1.73 sqM); Anion Gap 8 mmol/L; Blood Urea Nitrogen 5 mg/dL (7-17); Calcium 9.6 mg/dL (8.4-10.2); Carbon Dioxide 24 mmol/L (22-30); Chloride 107 mmol/L (98-107); Glucose 115 mg/dL (74-99); Non-African American GFR(CKD) >90 (>60 ml/min/1.73 sqM); Potassium 3.1 mmol/L (3.5-5.1); Sodium 139 mmol/L (137-145)
[2021-03-17 19:40] LABS: HCG,Quantitative Serum 311.5 mIU/mL
[2021-03-17] MEDS ORDERED: POTASSIUM CHLORIDE ER 20 MEQ TAB.ER PO STA (19:57)
--- NOTE | 2021-03-17 20:14 | US ---
EXAMINATION TYPE: Transabdominal DATE OF EXAM: 03/17/2021 7:48 PM COMPARISON: US 03/15/2021 CLINICAL HISTORY: pelvic pain. Pain and bleeding. Hx 2 C-Sections. . EXAM PERFORMED: Transvaginal (TV) and Transabdominal (TA) EXAM MEASUREMENTS: GESTATIONAL AGE / DATING Physician Established: Not yet established. Dates by LMP: (7 weeks/0 days) EDC: 11/03/2021 Dates by First Scan: This is first scan. Dates by Current Scan for: No IUP seen at this time. MATERNAL ANATOMY Uterus: 9.0 x 5.1 x 4.1 cm. Anteverted. Anechoic area seen in cervix: 0.7 x 0.2 x 0.1 cm , compatibl e with with nabothian cyst Right Ovary: Not seen. Left Ovary: 2.7 x 2.7 x 3.0 cm. Complex area with peripheral vascularity seen: 2.4 x 2.3 x 2.4 cm , m ay represent corpus luteal cyst Post CDS / Adnexa: Minimal fluid seen in cul-de-sac: 1.2 x 1.3 x 0.7 cm. Presence of free fluid: Minimal seen in cul-de-sac. Presence of corpus luteal cyst: Possible within left ovary-complex area seen as mentioned above. GESTATION / SURVEY IUP: No IUP seen at this time. Date of LMP: 01/27/2021 Beta HcG (if available): 311.5 IMPRESSION: No evidence of intrauterine at this time. Recommend serial beta hCG measurement and follow- up imaging as indicated. Left ovarian cyst. No evidence of ovarian torsion.
[2021-03-17 20:40] LABS: Appearance,Urine Cloudy (Clear); Bacteria,Urine Occasional /hpf; Bilirubin,Urine Negative (Negative); Blood,Urine Large (Negative); Calcium Oxalate Crystals,Urine Few /hpf; Color,Urine Light Red; Glucose,Urine (UA) Negative (Negative); Ketones,Urine Trace (Negative); Leukocyte Esterase,Urine Small (Negative); Mucus,Urine Many /hpf; Nitrite,Urine Negative (Negative); PH, Urine 5.5 (5.0-8.0); Protein,Urine 2+ (Negative); RBC,Urine 10 /hpf (0-5); Squamous Epithelial Cell,Urine 14 /hpf (0-4); WBC,Urine 31 /hpf (0-5)
== END 2021-03-17 21:34 | disposition home or self-care (01) ==
LOC: EC 17:55
DX: O20.0 Threatened abortion (principal); O99.341 Other mental disorders complicating pregnancy, first trimester; N83.202 Unspecified ovarian cyst, left side; F17.200 Nicotine dependence, unspecified, uncomplicated; F12.90 Cannabis use, unspecified, uncomplicated; F31.9 Bipolar disorder, unspecified; Z3A.01 Less than 8 weeks gestation of pregnancy; Z90.49 Acquired absence of other specified parts of digestive tract; Z87.440 Personal history of urinary (tract) infections
CPT/HCPCS: 36415; 76801; 76817; 80048; 81001; 84702; 85025; 86850; 86900; 86901; 87086; 99284

== ENCOUNTER → 2021-03-17 | Outpatient (CLI) | payer OTHER | END | disposition home or self-care (01) | LOC: LABWHC1 10:09 | PROVIDERS: ATTEND Emergency Medicine | DX: O20.0 Threatened abortion (principal); Z3A.00 Weeks of gestation of pregnancy not specified | CPT/HCPCS: 36415; 84702 ==

== ENCOUNTER → 2021-03-19 | Outpatient (CLI) | payer OTHER | END | disposition home or self-care (01) | LOC: LABWHC1 11:57 | PROVIDERS: ATTEND Emergency Medicine | DX: Z32.00 Encounter for pregnancy test, result unknown (principal) | CPT/HCPCS: 36415; 84702 ==

== ENCOUNTER 2021-03-22 16:09 | Emergency (ER) | payer OTHER ==
[2021-03-22 16:36] VITALS: BP 150/89; PULSE 79; RESP 20; TEMP 98.1
[2021-03-22] MEDS ORDERED: METHOTREXATE SODIUM (PF) 25 MG/ML 2 ML VIAL IM ONE ×2 (17:07→17:45)
--- NOTE | 2021-03-22 17:19 | ED ---
General Adult HPI - General Chief complaint: Abdominal Pain Stated complaint: Sent by Dr Olvera/Ectopic Time Seen by Provider: 03/22/21 16:54 Source: patient Mode of arrival: ambulatory Limitations: no limitations - History of Present Illness Initial comments: Patient is a 31-year-old female presenting to the emergency department from her SURFACER's office to receive methotrexate. Patient states she's been following with Dr. Olvera for a tubal . She's been receiving serial troponins, I did do an ultrasound of his revealed no IUP. Last beta-hCG is 208 which was done today. The SURFACER did not have the medication in her office, she was sent to different area to receive a shot however they're not able to get her in until tomorrow. Her SURFACER wanted her to get the shot today so sent her into the ER. She states her bleeding is minimal, she is having minimal pain. Her vital signs are stable. She has no nausea or vomiting. She has no further complaints. - Related Data Previous Rx's Medication Instructions Recorded Cephalexin [Keflex] 500 mg PO BID 1 Days #14 cap 03/15/21 Metoclopramide [Reglan] 10 mg PO TID PRN #15 tab 03/15/21 Pnv No.95/Ferrous Fum/Folic AC 1 each PO DAILY #30 tablet 03/15/21 [ Multivitamin Tablet] Allergies Allergy/AdvReac Type Severity Reaction Status Date / Time No Known Allergies Allergy Verified 03/22/21 16:36 Review of Systems ROS Statement: Those systems with pertinent positive or pertinent negative responses have been documented in the HPI. ROS Other: All systems not noted in ROS Statement are negative. Past Medical History Past Medical History: No Reported History Additional Past Medical History / Comment(s): MRSA, mental health illness, UTIs History of Any Multi-Drug Resistant Organisms: MRSA Date of last positivie culture/infection: 10/2014 MDRO Source:: skin, was on her thighs, buttocks, and back Past Surgical History: Appendectomy, Section, Cholecystectomy, Orthopedic Surgery Additional Past Surgical History / Comment(s): multiple bilateral knee surgeries Past Anesthesia/Blood Transfusion Reactions: No Reported Reaction Past Psychological History: Bipolar Smoking Status: Current every day smoker Past Alcohol Use History: Occasional Past Drug Use History: Marijuana - Past Family History Mother Family Medical History: Fibromyalgia Father History Unknown: Yes Family Medical History: Congestive Heart Failure (CHF), Hypertension General Exam - General Exam Comments Initial Comments: GENERAL: Patient is well-developed and well-nourished. Patient is nontoxic and in no acute distress. HEAD: Atraumatic, normocephalic. EYES: Pupils equal round and reactive to light, extraocular movements intact, sclera anicteric, conjunctiva are normal. Eyelids were unremarkable. ENT: Moist mucous membranes. NECK: Normal range of motion, supple without lymphadenopathy or JVD. LUNGS: Unlabored respirations. Breath sounds clear to auscultation bilaterally and equal. No wheezes rales or rhonchi. HEART: Regular rate and rhythm without murmurs, rubs or gallops. ABDOMEN: Soft, mildly tender suprapubic region, normoactive bowel sounds. No guarding, no rebound. No masses appreciated. : Deferred MUSCULOSKELETAL: Normal extremities with adequate strength and normal range of motion, no pitting or edema. No clubbing or cyanosis. NEUROLOGICAL: Patient is alert and oriented x 3. SKIN: Warm, Dry, normal turgor, no rashes or lesions noted. Limitations: no limitations Course Vital Signs 03/22/21 16:32 Temperature 98.1 F Pulse Rate 79 Respiratory 20 Rate Blood Pressure 150/89 O2 Sat by Pulse 99 Oximetry Medical Decision Making - Medical Decision Making Patient is a 31-year-old female here sent in from her SURFACER's office, Dr. Olvera to receive methotrexate. Dr. Olvera has been following her for possible ectopic , her most recent beta hCG levels are 208, ultrasound did not show a viable IUP. Patient was unable to get the methotrexate in her office and sent her in for medication. Patient is having minimal pain, minimal bleeding, vital signs are stable. Patient's blood type is A+. Patient received injection of methotrexate. She is stable for discharge. She will follow up with Dr. Olvera in a few days. Return parameters were discussed with her and she verbalized understanding. Case discussed with Dr. Wyatt. Disposition Clinical Impression: Ectopic , tubal Disposition: HOME SELF-CARE Condition: Stable Instructions (If sedation given, give patient instructions): Methotrexate (By injection), Ectopic (DC) Additional Instructions: Please return to the Emergency Department if symptoms worsen or any other concerns. Please follow up with Dr. Olvera's office as directed. Is patient prescribed a controlled substance at d/c from ED?: No Referrals: Lee Ann Tuttle MD [Primary Care Provider] - 1-2 days Lou Olvera DO [Family Provider] - 1-2 days Time of Disposition: 17:19
== END 2021-03-22 18:10 | disposition home or self-care (01) ==
LOC: EC 16:09
DX: O00.109 Unspecified tubal pregnancy without intrauterine pregnancy (principal); O99.330 Smoking (tobacco) complicating pregnancy, unspecified trimester; F17.200 Nicotine dependence, unspecified, uncomplicated; O99.320 Drug use complicating pregnancy, unspecified trimester; F12.90 Cannabis use, unspecified, uncomplicated; Z3A.00 Weeks of gestation of pregnancy not specified; Z82.49 Family history of ischemic heart disease and other diseases of the circulatory system
CPT/HCPCS: 96372; 99283

== ENCOUNTER → 2021-03-22 | Outpatient (CLI) | payer OTHER ==
[2021-03-22 10:41] LABS: ALT 33 U/L (4-34); AST 26 U/L (14-36); African American GFR (CKD) >90 (>60 ml/min/1.73 sqM); Blood Urea Nitrogen 14 mg/dL (7-17); Non-African American GFR(CKD) >90 (>60 ml/min/1.73 sqM)
[2021-03-22 10:59] LABS: HCG,Quantitative Serum 208.3 mIU/mL
== END | disposition home or self-care (01) ==
LOC: LABWHC1 09:29
PROVIDERS: ATTEND Obstetrics & Gynecology
DX: O00.90 Unspecified ectopic pregnancy without intrauterine pregnancy (principal); Z3A.00 Weeks of gestation of pregnancy not specified
CPT/HCPCS: 36415; 82565; 84450; 84460; 84520; 84702

== ENCOUNTER → 2021-03-28 | Outpatient (CLI) | payer OTHER | END | disposition home or self-care (01) | LOC: LABWHC1 10:27 | PROVIDERS: ATTEND Obstetrics & Gynecology | DX: O00.90 Unspecified ectopic pregnancy without intrauterine pregnancy (principal); Z3A.00 Weeks of gestation of pregnancy not specified | CPT/HCPCS: 36415; 84702 ==

== ENCOUNTER → 2021-04-01 | Outpatient (CLI) | payer OTHER | END | disposition home or self-care (01) | LOC: LABWHC1 11:04 | PROVIDERS: ATTEND Obstetrics & Gynecology | DX: O00.90 Unspecified ectopic pregnancy without intrauterine pregnancy (principal); Z3A.00 Weeks of gestation of pregnancy not specified | CPT/HCPCS: 36415; 84702 ==

== ENCOUNTER 2021-10-02 15:47 | Emergency (ER) | payer OTHER ==
[2021-10-02] MEDS ORDERED: ACETAMINOPHEN TAB 500 MG TAB PO STA (16:06)
--- NOTE | 2021-10-02 16:14 | ED ---
General Adult HPI - General Chief complaint: ENT Stated complaint: tonsillitis Time Seen by Provider: 10/02/21 16:03 Source: patient, RN notes reviewed, old records reviewed Mode of arrival: ambulatory Limitations: no limitations - History of Present Illness Initial comments: 31 year old female presents with sore throat and neck pain since Sunday. States was seen at [facility] yesterday and told she had tonsilitis and given steroids. Today patient c/o malaise, fever and n/v. She took Advil earlier today. She is a smoker. -: days(s) (5) Location: neck Radiation: non-radiation Severity scale (1-10): 10 Quality: aching Consistency: constant Improves with: none Associated Symptoms: fever/chills, malaise, nausea/vomiting Treatments Prior to Arrival: NSAID - Related Data Previous Rx's Medication Instructions Recorded Cephalexin [Keflex] 500 mg PO BID 1 Days #14 cap 03/15/21 Metoclopramide [Reglan] 10 mg PO TID PRN #15 tab 03/15/21 Pnv No.95/Ferrous Fum/Folic AC 1 each PO DAILY #30 tablet 03/15/21 [ Multivitamin Tablet] Allergies Allergy/AdvReac Type Severity Reaction Status Date / Time No Known Allergies Allergy Verified 10/02/21 15:52 Review of Systems ROS Statement: Those systems with pertinent positive or pertinent negative responses have been documented in the HPI. ROS Other: All systems not noted in ROS Statement are negative. Past Medical History Past Medical History: No Reported History Additional Past Medical History / Comment(s): MRSA, mental health illness, UTIs History of Any Multi-Drug Resistant Organisms: MRSA Date of last positivie culture/infection: 10/2014 MDRO Source:: skin, was on her thighs, buttocks, and back Past Surgical History: Appendectomy, Section, Cholecystectomy, Orthopedic Surgery Additional Past Surgical History / Comment(s): multiple bilateral knee surgeries Past Anesthesia/Blood Transfusion Reactions: No Reported Reaction Past Psychological History: Bipolar Smoking Status: Current every day smoker Past Alcohol Use History: Occasional Past Drug Use History: Marijuana - Past Family History Mother Family Medical History: Fibromyalgia Father History Unknown: Yes Family Medical History: Congestive Heart Failure (CHF), Hypertension General Exam Limitations: no limitations General appearance: alert, in no apparent distress Head exam: Present: atraumatic, normocephalic, normal inspection Eye exam: Present: normal appearance, periorbital swelling. Absent: scleral icterus, conjunctival injection, periorbital tenderness ENT exam: Present: normal exam, normal oropharynx, mucous membranes moist Neck exam: Present: tenderness, full ROM, lymphadenopathy. Absent: meningismus, thyromegaly Expanded Neck exam: Absent: midline deformity, anterior neck swelling, tracheal deviation Respiratory exam: Present: normal lung sounds bilaterally. Absent: respiratory distress, wheezes, accessory muscle use, decreased breath sounds Cardiovascular Exam: Present: tachycardia GI/Abdominal exam: Present: soft. Absent: distended Extremities exam: Present: normal capillary refill. Absent: tenderness, pedal edema Back exam: Present: normal inspection. Absent: tenderness, CVA tenderness (R), CVA tenderness (L), rash noted Neurological exam: Present: alert, oriented X3, normal gait Psychiatric exam: Present: normal affect, normal mood Skin exam: Present: warm, dry, normal color. Absent: rash, cyanosis, diaphoretic, petechiae, pallor Course Vital Signs 10/02/21 10/02/21 15:49 19:05 Temperature 101.6 F H 99.2 F Pulse Rate 105 H 92 Respiratory 20 18 Rate Blood Pressure 139/78 117/42 O2 Sat by Pulse 98 97 Oximetry Medical Decision Making - Medical Decision Making 31 year old nontoxic appearing female presents with sore throat and neck pain since Sunday. Was seen at [facility] yesterday diagnosed with tonsilitis and given steroids. Here today with malaise, fever and n/v. On physical exam there is no tonsillar exudates or erythema. Patient was given Tylenol in the emergency room for fever. Coronavirus and influenza swabs were negative. Rapid strep was done and negative. Urinalysis was a contaminated specimen was sent for culture. Patient states that she is feeling better after the Tylenol and ready to go home. She has had no nausea or vomiting in the emergency room. This is likely a viral illness she is instructed to increase her fluid intake and return to the emergency room if any new or concerning symptoms, take Tylenol and/or Motrin as needed for body aches or fevers. Patient is agreeable to this plan of care. - Lab Data Lab Results 10/02/21 10/02/21 10/02/21 Range/Units 16:47 16:47 16:58 Urine Color Yellow Urine Appearance Cloudy H (Clear) Urine pH 7.0 (5.0-8.0) Ur Specific [place] 1.024 (1.001-1.035) Urine Protein 1+ H (Negative) Urine Glucose (UA) 1+ H (Negative) Urine Ketones Negative (Negative) Urine Blood Trace H (Negative) Urine Nitrite Negative (Negative) Urine Bilirubin 1+ H (Negative) Urine Urobilinogen 8.0 (<2.0) mg/dL Ur Leukocyte Esterase Negative (Negative) Urine RBC 16 H (0-5) /hpf Urine WBC 5 (0-5) /hpf Ur Squamous Epith Cells 24 H (0-4) /hpf Urine Mucus Few H (None) /hpf Influenza Type A (PCR) Not Detected (Not Detectd) Influenza Type B (PCR) Not Detected (Not Detectd) RSV (PCR) Not Detected (Not Detectd) SARS-CoV-2 (PCR) Not Detected (Not Detectd) Group A Strep Rapid Negative (Negative) Disposition Clinical Impression: Fever, Nausea Disposition: HOME SELF-CARE Condition: Good Instructions (If sedation given, give patient instructions): Acute Nausea and Vomiting (ED) Additional Instructions: Tylenol and or Motrin as needed for fevers. Increase your fluid intake. Return to the emergency room with any new or concerning symptoms. Follow-up with the primary care doctor next week. Is patient prescribed a controlled substance at d/c from ED?: No Referrals: None,Stated [Primary Care Provider] - 1-2 days Time of Disposition: 18:48
[2021-10-02 17:30] LABS: Appearance,Urine Cloudy (Clear); Bilirubin,Urine 1+ (Negative); Blood,Urine Trace (Negative); Color,Urine Yellow; Glucose,Urine (UA) 1+ (Negative); Ketones,Urine Negative (Negative); Leukocyte Esterase,Urine Negative (Negative); Mucus,Urine Few /hpf; Nitrite,Urine Negative (Negative); Protein,Urine 1+ (Negative); RBC,Urine 16 /hpf (0-5); Specific Gravity,Urine 1.024 (1.001-1.035); Squamous Epithelial Cell,Urine 24 /hpf (0-4); WBC,Urine 5 /hpf (0-5)
[2021-10-02 18:15] LABS: Influenza A Not Detected (Not Detectd); Influenza B Not Detected (Not Detectd)
[2021-10-02 19:08] VITALS: BP 117/42; PULSE 92; RESP 18; TEMP 99.2
== END 2021-10-02 19:05 | disposition home or self-care (01) ==
LOC: EC 15:47
DX: R50.9 Fever, unspecified (principal); R11.2 Nausea with vomiting, unspecified; F31.9 Bipolar disorder, unspecified; F17.200 Nicotine dependence, unspecified, uncomplicated; F12.90 Cannabis use, unspecified, uncomplicated; Z20.822 Contact with and (suspected) exposure to COVID-19; Z87.440 Personal history of urinary (tract) infections; Z90.49 Acquired absence of other specified parts of digestive tract
CPT/HCPCS: 81001; 87081; 87430; 87636; 99284

== ENCOUNTER 2021-10-14 08:23 | Emergency (ER) | payer OTHER ==
[2021-10-14 08:29] VITALS: TEMP 98.5
--- NOTE | 2021-10-14 08:58 | ED ---
General Adult HPI - General Chief complaint: Vaginal Bleeding Stated complaint: 5wks preg, bleeding Time Seen by Provider: 10/14/21 08:30 Source: patient, RN notes reviewed Limitations: no limitations - History of Present Illness Initial comments: Patient's 31-year-old female who is G4, P2, with one previous ectopic , presenting today with chief complaint of some vaginal bleeding. Patient does admit that she believe she is proximal knee 5 weeks . She states that she noticed pink tinge to her urine today. Patient denies any increased pain. She denies any other complaints or symptoms currently. She does admit that she was recently admitted for tonsillitis and a cough. Patient denies any recent fever, chills, shortness of breath, chest pain, back pain, abdominal pain, nausea or vomiting, headaches or visual changes, or any other complaints. - Related Data Previous Rx's Medication Instructions Recorded Cephalexin [Keflex] 500 mg PO BID 1 Days #14 cap 03/15/21 Metoclopramide [Reglan] 10 mg PO TID PRN #15 tab 03/15/21 Pnv No.95/Ferrous Fum/Folic AC 1 each PO DAILY #30 tablet 03/15/21 [ Multivitamin Tablet] Allergies Allergy/AdvReac Type Severity Reaction Status Date / Time No Known Allergies Allergy Verified 10/14/21 08:29 Review of Systems ROS Statement: Those systems with pertinent positive or pertinent negative responses have been documented in the HPI. ROS Other: All systems not noted in ROS Statement are negative. Past Medical History Past Medical History: No Reported History Additional Past Medical History / Comment(s): MRSA, mental health illness, UTIs History of Any Multi-Drug Resistant Organisms: MRSA Date of last positivie culture/infection: 10/2014 MDRO Source:: skin, was on her thighs, buttocks, and back Past Surgical History: Appendectomy, Section, Cholecystectomy, Orthopedic Surgery Additional Past Surgical History / Comment(s): multiple bilateral knee surgeries Past Anesthesia/Blood Transfusion Reactions: No Reported Reaction Past Psychological History: Bipolar Smoking Status: Current every day smoker Past Alcohol Use History: Occasional Past Drug Use History: Marijuana - Past Family History Mother Family Medical History: Fibromyalgia Father History Unknown: Yes Family Medical History: Congestive Heart Failure (CHF), Hypertension General Exam - General Exam Comments Initial Comments: General: The patient is awake and alert, in no distress, and does not appear acutely ill. Eye: extra-ocular movements are intact. No nystagmus. There is normal conjunctiva bilaterally. No signs of icterus. Ears, nose, mouth and throat: There are moist mucous membranes and no oral lesions. Neck: The neck is supple, there is no tenderness or JVD. Respiratory: respirations are non-labored, breath sounds are equal. No wheezes, stridor, rales, or rhonchi. Gastrointestinal: Abdomen soft on palpation. No tenderness. No rebound, guarding or CVA tenderness. Musculoskeletal: Normal ROM, no tenderness. Strength 5/5. Neurological: A&O x 3. CN II-XII intact, There are no obvious motor or sensory deficits. Coordination appears grossly intact. Speech is normal. Skin: Skin is warm and dry and no rashes or lesions are noted. Psychiatric: Cooperative, appropriate mood & affect, normal judgment. Limitations: no limitations Course Vital Signs 10/14/21 10/14/21 08:26 10:48 Temperature 98.5 F Pulse Rate 74 77 Respiratory 20 18 Rate Blood Pressure 152/67 151/72 O2 Sat by Pulse 100 98 Oximetry Medical Decision Making - Medical Decision Making Patient reexamined she is resting covered. Patient's labs been reviewed. Her beta hCG was 30. Patient's ultrasound does show evidence of fall versus cyst versus endometriosis versus ectopic . Patient's remaining labs are been reviewed. Patient's comfort when here in emergency room her abdomen is soft nontender. Case was discussed with PER DIEM RN Dr. Olvera. She recommended to repeat beta hCG and 2 days. Patient has been given a prescription to have it done. Patient is advised that she should return to emergency room if there is any increase of her symptoms. She states understanding and is agreement. - Lab Data Result diagrams: 10/14/21 10:02 10/14/21 10:02 Lab Results 10/14/21 10/14/21 10/14/21 Range/Units 10:02 10:02 10:02 RBC 3.57 L (3.80-5.40) m/uL Hgb 11.2 L (11.4-16.0) gm/dL Hct 34.3 (34.0-46.0) % MCV 96.2 (80.0-100.0) fL MCH 31.4 (25.0-35.0) pg MCHC 32.7 (31.0-37.0) g/dL RDW 14.1 (11.5-15.5) % Plt Count 286 (150-450) k/uL MPV 9.2 Sodium 134 L (137-145) mmol/L Potassium 4.5 (3.5-5.1) mmol/L Chloride 107 (98-107) mmol/L Carbon Dioxide 24 (22-30) mmol/L Anion Gap 3 mmol/L BUN 21 H (7-17) mg/dL Creatinine 0.78 (0.52-1.04) mg/dL Est GFR (CKD-EPI)AfAm >90 (>60 ml/min/1.73 sqM) Est GFR (CKD-EPI)NonAf >90 (>60 ml/min/1.73 sqM) Glucose 131 H (74-99) mg/dL Calcium 8.5 (8.4-10.2) mg/dL Total Bilirubin 0.7 (0.2-1.3) mg/dL AST 24 (14-36) U/L ALT 37 H (4-34) U/L Alkaline Phosphatase 91 (38-126) U/L Total Protein 6.1 L (6.3-8.2) g/dL Albumin 2.6 L (3.5-5.0) g/dL HCG, Quant 30.0 mIU/mL Urine Color Urine Appearance (Clear) Urine pH (5.0-8.0) Ur Specific [place] (1.001-1.035) Urine Protein (Negative) Urine Glucose (UA) (Negative) Urine Ketones (Negative) Urine Blood (Negative) Urine Nitrite (Negative) Urine Bilirubin (Negative) Urine Urobilinogen (<2.0) mg/dL Ur Leukocyte Esterase (Negative) Urine RBC (0-5) /hpf Urine WBC (0-5) /hpf Ur Squamous Epith Cells (0-4) /hpf Urine Mucus (None) /hpf Blood Type A Positive Blood Type Recheck A Pos Bld Type Recheck Status No 10/14/21 Range/Units 10:42 RBC (3.80-5.40) m/uL Hgb (11.4-16.0) gm/dL Hct (34.0-46.0) % MCV (80.0-100.0) fL MCH (25.0-35.0) pg MCHC (31.0-37.0) g/dL RDW (11.5-15.5) % Plt Count (150-450) k/uL MPV Sodium (137-145) mmol/L Potassium (3.5-5.1) mmol/L Chloride (98-107) mmol/L Carbon Dioxide (22-30) mmol/L Anion Gap mmol/L BUN (7-17) mg/dL Creatinine (0.52-1.04) mg/dL Est GFR (CKD-EPI)AfAm (>60 ml/min/1.73 sqM) Est GFR (CKD-EPI)NonAf (>60 ml/min/1.73 sqM) Glucose (74-99) mg/dL Calcium (8.4-10.2) mg/dL Total Bilirubin (0.2-1.3) mg/dL AST (14-36) U/L ALT (4-34) U/L Alkaline Phosphatase (38-126) U/L Total Protein (6.3-8.2) g/dL Albumin (3.5-5.0) g/dL HCG, Quant mIU/mL Urine Color Light Yellow Urine Appearance Clear (Clear) Urine pH 6.0 (5.0-8.0) Ur Specific [place] 1.009 (1.001-1.035) Urine Protein Negative (Negative) Urine Glucose (UA) Negative (Negative) Urine Ketones Negative (Negative) Urine Blood Trace H (Negative) Urine Nitrite Negative (Negative) Urine Bilirubin Negative (Negative) Urine Urobilinogen <2.0 (<2.0) mg/dL Ur Leukocyte Esterase Trace H (Negative) Urine RBC 6 H (0-5) /hpf Urine WBC 5 (0-5) /hpf Ur Squamous Epith Cells <1 (0-4) /hpf Urine Mucus Rare H (None) /hpf Blood Type Blood Type Recheck Bld Type Recheck Status Disposition Clinical Impression: Threatened Disposition: HOME SELF-CARE Condition: Stable Instructions (If sedation given, give patient instructions): Threatened Miscarriage (ED) Additional Instructions: Please follow up with PER DIEM RN over the next 2 days. Return to emergency room symptoms increase or worsen as discussed. Have blood redrawn in 2 days. Is patient prescribed a controlled substance at d/c from ED?: No Referrals: None,Stated [Primary Care Provider] - 1-2 days Lou Olvera DO [Doctor of Osteopathic Medicine] - 1-2 days Time of Disposition: 11:49
[2021-10-14 10:34] LABS: ALT 37 U/L (4-34); AST 24 U/L (14-36); African American GFR (CKD) >90 (>60 ml/min/1.73 sqM); Albumin 2.6 g/dL (3.5-5.0); Alkaline Phosphatase 91 U/L (38-126); Anion Gap 3 mmol/L; Blood Urea Nitrogen 21 mg/dL (7-17); Calcium 8.5 mg/dL (8.4-10.2); Carbon Dioxide 24 mmol/L (22-30); Chloride 107 mmol/L (98-107); Glucose 131 mg/dL (74-99); Non-African American GFR(CKD) >90 (>60 ml/min/1.73 sqM); Potassium 4.5 mmol/L (3.5-5.1); Sodium 134 mmol/L (137-145); Total Bilirubin 0.7 mg/dL (0.2-1.3); Total Protein 6.1 g/dL (6.3-8.2)
[2021-10-14 10:49] VITALS: BP 151/72; PULSE 77; RESP 18
[2021-10-14 11:02] LABS: HCT 34.3 % (34.0-46.0); HGB 11.2 gm/dL (11.4-16.0); MCH 31.4 pg (25.0-35.0); MCHC 32.7 g/dL (31.0-37.0); MCV 96.2 fL (80.0-100.0); Mean Platelet Volume 9.2; Platelet Count 286 k/uL (150-450); RBC 3.57 m/uL (3.80-5.40); RDW 14.1 % (11.5-15.5)
[2021-10-14 11:08] LABS: WBC 36.9 k/uL (3.8-10.6)
--- NOTE | 2021-10-14 11:08 | US ---
EXAMINATION TYPE: Transabdominal and Transvaginal US DATE OF EXAM: 10/14/2021 10:31 AM COMPARISON: NONE for this CLINICAL HISTORY: bleeding. EC patient with vaginal spotting in early ; A1; ectopic preg daniel last year and patient not sure where ectopic was located (received Methotrexate for ectopic pre gnancy); C section x 2 EXAM PERFORMED: Transvaginal (TV) and Transabdominal (TA) endovaginal scanning was performed for bet ter evaluation of uterus and endometrium and ovaries EXAM MEASUREMENTS: GESTATIONAL AGE / DATING Physician Established: Not yet established Dates by LMP: (4 weeks/3 days) EDC: 06/20/2022 Dates by First Scan: No previous for this Dates by Current Scan for: No IUP seen; possible ectopic seen in right ovary MATERNAL ANATOMY Uterus: 9.9 x 4.3 x 3.8cm. Endometrial thickness = 1.0cm. Right Ovary: 3.9 x 2.1 x 2.5cm TV US Left Ovary: 2.1 x 1.8 x 1.7cm TA US Post CDS / Adnexa: presence of free fluid in posterior cul de sac = 3.4 x 3.6 x 2.1cm. In right ovary calcified hyperechoic shadowing focus is noted in periphery; also, hypoechoic thick wa lled cyst with somewhat hyperechoic margins is noted in right ovary with size = 1.0 x 0.9 x 0.9cm. Presence of corpus luteal cyst: possibly in right ovary = 1.8 x 1.5 x 1.1cm with involuting borders i soechoic to ovarian tissue Presence of subchorionic bleed: no GESTATION / SURVEY: No IUP seen Date of LMP: 09/13/2021 Beta HcG (if available): NA IMPRESSION: Indeterminate cystic focus right ovary, differential includes involuting follicle, hemorr hagic cyst, endometriosis, ectopic not excluded, correlate, follow-up as indicated Free flu id within the cul-de-sac may be physiologic.
[2021-10-14 11:27] LABS: Appearance,Urine Clear (Clear); Bilirubin,Urine Negative (Negative); Blood,Urine Trace (Negative); Color,Urine Light Yellow; Glucose,Urine (UA) Negative (Negative); Ketones,Urine Negative (Negative); Leukocyte Esterase,Urine Trace (Negative); Mucus,Urine Rare /hpf; Nitrite,Urine Negative (Negative); Protein,Urine Negative (Negative); RBC,Urine 6 /hpf (0-5); Specific Gravity,Urine 1.009 (1.001-1.035); Squamous Epithelial Cell,Urine <1 /hpf (0-4); Urobilinogen,Urine <2.0 mg/dL (<2.0); WBC,Urine 5 /hpf (0-5)
[2021-10-14 12:57] LABS: Lymphocytes # (M) 2.58 k/uL (1.0-4.8); Metamyelocytes # (M) 0.74 k/uL (0); Metamyelocytes % 2 %; Monocytes # (M) 1.11 k/uL (0-1.0); Myelocytes # (M) 0.37 k/uL (0); Myelocytes % 1 %; Neutrophils # (M) 32.47 k/uL (1.3-7.7); Neutrophils % (M) 88 %; Nucleated Red Blood Cells 0 /100 WBC (0-0); Total Cells Counted 200
[2021-10-14 13:16] LABS: RBC Morphology Normal
== END 2021-10-14 12:10 | disposition home or self-care (01) ==
LOC: EC 08:23
DX: O20.0 Threatened abortion (principal); F31.9 Bipolar disorder, unspecified; F17.200 Nicotine dependence, unspecified, uncomplicated; F12.90 Cannabis use, unspecified, uncomplicated; Z3A.00 Weeks of gestation of pregnancy not specified; Z87.440 Personal history of urinary (tract) infections; Z90.49 Acquired absence of other specified parts of digestive tract
CPT/HCPCS: 36415; 76801; 76817; 80053; 81001; 84702; 85025; 86900; 86901; 99284

== ENCOUNTER → 2021-10-16 | Outpatient (CLI) | payer OTHER | END | disposition home or self-care (01) | LOC: LABMAIN 10:41 | PROVIDERS: ATTEND Physician Assistant | DX: O26.90 Pregnancy related conditions, unspecified, unspecified trimester (principal); Z3A.00 Weeks of gestation of pregnancy not specified | CPT/HCPCS: 84702 ==

== ENCOUNTER → 2021-10-18 | Outpatient (CLI) | payer SELFPAY | END | disposition home or self-care (01) | LOC: LABWHC1 08:43 | PROVIDERS: ATTEND Obstetrics & Gynecology | DX: O02.81 Inappropriate change in quantitative human chorionic gonadotropin (hCG) in early pregnancy (principal); Z3A.00 Weeks of gestation of pregnancy not specified | CPT/HCPCS: 36415; 84702 ==

== ENCOUNTER → 2021-10-20 | Outpatient (CLI) | payer SELFPAY | END | disposition home or self-care (01) | LOC: LABWHC1 07:28 | PROVIDERS: ATTEND Obstetrics & Gynecology | DX: O02.81 Inappropriate change in quantitative human chorionic gonadotropin (hCG) in early pregnancy (principal); Z3A.00 Weeks of gestation of pregnancy not specified | CPT/HCPCS: 36415; 84702 ==

== ENCOUNTER → 2021-10-21 | Outpatient (CLI) | payer SELFPAY ==
[~2021-10-21] MED LIST: METHOTREXATE SODIUM (PF) 25 MG/ML 2 ML VIAL IM NR
[2021-10-21 12:54] VITALS: BP 134/87; PULSE 105; RESP 16; TEMP 98.1
== END ==
LOC: PROCWHC3 12:27
PROVIDERS: ATTEND Obstetrics & Gynecology
DX: O00.90 Unspecified ectopic pregnancy without intrauterine pregnancy (principal); O99.330 Smoking (tobacco) complicating pregnancy, unspecified trimester; Z3A.00 Weeks of gestation of pregnancy not specified; F17.200 Nicotine dependence, unspecified, uncomplicated

== ENCOUNTER 2021-10-23 11:45 | Emergency (ER) | payer SELFPAY ==
[2021-10-23 11:58] VITALS: RESP 18
[2021-10-23] MEDS ORDERED: KETOROLAC 15 MG/ML 1 ML VIAL IM STA (12:22)
--- NOTE | 2021-10-23 12:26 | ED ---
General Adult HPI - General Chief complaint: Shortness of Breath Stated complaint: lung pain Time Seen by Provider: 10/23/21 12:00 Source: patient, RN notes reviewed, old records reviewed Mode of arrival: ambulatory Limitations: no limitations - History of Present Illness Initial comments: This is a 31-year-old female presents emergency department stating that is early this month she had pneumonia and was admitted to the hospital. Patient states over the last few days she has had some coughing and has pain in the upper back in the mid thorax bilaterally. Patient states it's worse with deep breathing. Patient denies any shortness of breath or chest pain or palpitations. Patient states it just hurts when she takes a deep breath or coughs. Patient states she has no sputum production. Patient denies any fever chills. Patient denies any abdominal pain patient denies nausea vomiting diarrhea. Patient denies any swelling to the legs patient denies any calf tenderness. - Related Data Previous Rx's Medication Instructions Recorded Ketorolac [Toradol] 10 mg PO Q6HR #15 tab 10/23/21 Allergies Allergy/AdvReac Type Severity Reaction Status Date / Time No Known Allergies Allergy Verified 10/23/21 11:58 Review of Systems ROS Statement: Those systems with pertinent positive or pertinent negative responses have been documented in the HPI. ROS Other: All systems not noted in ROS Statement are negative. Past Medical History Past Medical History: No Reported History Additional Past Medical History / Comment(s): RECENT DIAGNOSIS OF AUTOMIMMUNE DISEASE. ECTOPIC PREGNANCIES X2. History of Any Multi-Drug Resistant Organisms: MRSA Date of last positivie culture/infection: 10/2014 MDRO Source:: skin, was on her thighs, buttocks, and back Past Surgical History: Appendectomy, Section, Cholecystectomy, Orthopedic Surgery Additional Past Surgical History / Comment(s): multiple bilateral knee surgeries Past Anesthesia/Blood Transfusion Reactions: No Reported Reaction Past Psychological History: Bipolar Smoking Status: Current every day smoker Past Alcohol Use History: None Reported Past Drug Use History: Marijuana - Past Family History Mother Family Medical History: Fibromyalgia Father History Unknown: Yes Family Medical History: Congestive Heart Failure (CHF), Hypertension General Exam - General Exam Comments Initial Comments: GENERAL: Patient is well-developed and well-nourished. Patient is nontoxic and well- hydrated and is in no acute distress. ENT: Neck is soft and supple. No significant lymphadenopathy is noted. Oropharynx is clear. Moist mucous membranes. Neck has full range of motion without eliciting any pain. EYES: The sclera were anicteric and conjunctiva were pink and moist. Extraocular movements were intact and pupils were equal round and reactive to light. Eyelids were unremarkable. PULMONARY: Unlabored respirations. Good breath sounds bilaterally. No audible rales rhonchi or wheezing was noted. CARDIOVASCULAR: There is a regular rate and rhythm without any murmurs gallops or rubs. Patient's heart rate was 82 beats a minute. ABDOMEN: Soft and nontender with normal bowel sounds. SKIN: Skin is clear with no lesions or rashes and otherwise unremarkable. NEUROLOGIC: Patient is alert and oriented x3. Cranial nerves II through XII are grossly intact. Motor and sensory are also intact. Normal speech, volume and content. Symmetrical smile. MUSCULOSKELETAL: Normal extremities with adequate strength and full range of motion. No lower extremity swelling or edema. No calf tenderness. LYMPHATICS: No significant lymphadenopathy is noted PSYCHIATRIC: Normal psychiatric evaluation. Limitations: no limitations Course Vital Signs 10/23/21 11:56 Temperature 98.8 F Pulse Rate 103 H Respiratory 18 Rate Blood Pressure 148/99 O2 Sat by Pulse 99 Oximetry Medical Decision Making - Medical Decision Making Chest x-ray shows no acute abnormality. Patient received Toradol shot emergency department and she was feeling better. I checked the patient's pulse again and it was 88. Disposition Clinical Impression: Back pain, thoracic Disposition: HOME SELF-CARE Condition: Good Additional Instructions: Patient should return if there is any chest pain or shortness of breath. Patient can also take Tylenol with the Toradol that was prescribed for her. Prescriptions: Ketorolac [Toradol] 10 mg PO Q6HR #15 tab Is patient prescribed a controlled substance at d/c from ED?: No Referrals: None,Stated [Primary Care Provider] - 1-2 days Time of Disposition: 13:01
--- NOTE | 2021-10-23 12:56 | XR ---
EXAMINATION TYPE: XR chest 2V DATE OF EXAM: 10/23/2021 COMPARISON: Chest x-ray November 02, 2013 HISTORY: Difficulty breathing. Right-sided pain with inspiration. TECHNIQUE: Frontal and lateral views of the chest are obtained. FINDINGS: There is no suspicious focal air space opacity, pleural effusion, or pneumothorax seen. T he cardiac silhouette size remain within normal limits. The osseous structures are intact. IMPRESSION: No acute process.
[2021-10-23 13:06] VITALS: BP 135/85; PULSE 86; TEMP 98.1
== END 2021-10-23 13:41 | disposition home or self-care (01) ==
LOC: EC 11:45
DX: M54.6 Pain in thoracic spine (principal); F31.9 Bipolar disorder, unspecified; F17.200 Nicotine dependence, unspecified, uncomplicated; F12.90 Cannabis use, unspecified, uncomplicated; Z90.49 Acquired absence of other specified parts of digestive tract
CPT/HCPCS: 99283; 96372; 71046; J1885

== ENCOUNTER 2021-10-25 07:23 | Emergency (ER) | payer OTHER ==
[2021-10-25] MEDS ORDERED: KETOROLAC 15 MG/ML 1 ML VIAL IVP STA (07:56)
--- NOTE | 2021-10-25 07:56 | ED ---
General Adult HPI - General Chief complaint: Abdominal Pain Stated complaint: right side pain Time Seen by Provider: 10/25/21 07:30 Source: patient, RN notes reviewed, old records reviewed Mode of arrival: ambulatory Limitations: no limitations - History of Present Illness Initial comments: This is a 31-year-old female who presents emergency department stating that on Sunday of last week October 21 she was given medication to abort her OB of bleeding to be an ectopic . Patient came in Sunday because she was having some upper back pain and the pain resolve she stated. Patient states the rest of the day Sunday she felt fine and when she woke up Sunday she started having some lower right back pain and she took some [id number] medication and it was finally rested they Sunday. Patient states this morning she woke up again and continues to have right lower back pain so she came to the emergency department to be evaluated. Patient has not yet followed up with her [employer]. Patient denies any fever chills patient denies any nausea vomiting diarrhea. Patient denies any dysuria hematuria urinary frequency. Patient stated to fredi arevalo that she had abdominal pain but she denied abdominal pain to me and she pointed only to her lower back. Patient states there is a little bit of vaginal bleeding. - Related Data Home Medications Medication Instructions Recorded Confirmed Albuterol Sulfate [Proventil Hfa] 2 puff INHALATION RT-QID PRN 10/25/21 10/25/21 Ketorolac [Toradol] 10 mg PO Q6H 10/25/21 10/25/21 Allergies Allergy/AdvReac Type Severity Reaction Status Date / Time No Known Allergies Allergy Verified 10/25/21 09:48 Review of Systems ROS Statement: Those systems with pertinent positive or pertinent negative responses have been documented in the HPI. ROS Other: All systems not noted in ROS Statement are negative. Past Medical History Past Medical History: No Reported History Additional Past Medical History / Comment(s): RECENT DIAGNOSIS OF AUTOMIMMUNE DISEASE. ECTOPIC PREGNANCIES X2. History of Any Multi-Drug Resistant Organisms: MRSA Date of last positivie culture/infection: 10/2014 MDRO Source:: skin, was on her thighs, buttocks, and back Past Surgical History: Appendectomy, Section, Cholecystectomy, Orthopedic Surgery Additional Past Surgical History / Comment(s): multiple bilateral knee surgeries Past Anesthesia/Blood Transfusion Reactions: No Reported Reaction Past Psychological History: Bipolar Smoking Status: Current every day smoker Past Alcohol Use History: None Reported Past Drug Use History: Marijuana - Past Family History Mother Family Medical History: Fibromyalgia Father History Unknown: Yes Family Medical History: Congestive Heart Failure (CHF), Hypertension General Exam - General Exam Comments Initial Comments: GENERAL: Patient is well-developed and well-nourished. Patient is nontoxic and well- hydrated and is in mild distress. ENT: Neck is soft and supple. No significant lymphadenopathy is noted. Oropharynx is clear. Moist mucous membranes. Neck has full range of motion without eliciting any pain. EYES: The sclera were anicteric and conjunctiva were pink and moist. Extraocular movements were intact and pupils were equal round and reactive to light. Eyelids were unremarkable. PULMONARY: Unlabored respirations. Good breath sounds bilaterally. No audible rales rhonchi or wheezing was noted. CARDIOVASCULAR: There is a regular rate and rhythm without any murmurs gallops or rubs. ABDOMEN: Soft and nontender with normal bowel sounds. SKIN: Skin is clear with no lesions or rashes and otherwise unremarkable. NEUROLOGIC: Patient is alert and oriented x3. Cranial nerves II through XII are grossly intact. Motor and sensory are also intact. Normal speech, volume and content. Symmetrical smile. MUSCULOSKELETAL: Normal extremities with adequate strength and full range of motion. Patient has minimal reproducible palpable lower right back pain. LYMPHATICS: No significant lymphadenopathy is noted PSYCHIATRIC: Normal psychiatric evaluation. Limitations: no limitations Course Vital Signs 10/25/21 10/25/21 07:30 09:49 Temperature 98.4 F Pulse Rate 89 84 Respiratory 20 18 Rate Blood Pressure 151/81 139/94 O2 Sat by Pulse 100 98 Oximetry Medical Decision Making - Medical Decision Making Ultrasound showed a area in the right ovary that could be consistent with a ectopic . Patient's beta hCG shaun to 247. I spoke with Dr. Olvera she stated that that was within normal after giving methotrexate. Dr. Olvera was okay with the patient being discharged and following up with her as previously directed. I spoke with the patient she was in agreement with this plan. - Lab Data Result diagrams: 10/25/21 08:01 10/25/21 08:01 Lab Results 10/25/21 10/25/21 Range/Units 08:01 08:01 WBC 10.7 H (3.8-10.6) k/uL RBC 3.62 L (3.80-5.40) m/uL Hgb 11.3 L (11.4-16.0) gm/dL Hct 33.9 L (34.0-46.0) % MCV 93.8 (80.0-100.0) fL MCH 31.3 (25.0-35.0) pg MCHC 33.4 (31.0-37.0) g/dL RDW 14.5 (11.5-15.5) % Plt Count 378 (150-450) k/uL MPV 6.7 Neutrophils % 73 % Lymphocytes % 20 % Monocytes % 2 % Eosinophils % 3 % Basophils % 1 % Neutrophils # 7.9 H (1.3-7.7) k/uL Lymphocytes # 2.1 (1.0-4.8) k/uL Monocytes # 0.2 (0-1.0) k/uL Eosinophils # 0.3 (0-0.7) k/uL Basophils # 0.1 (0-0.2) k/uL Sodium 133 L (137-145) mmol/L Potassium 4.1 (3.5-5.1) mmol/L Chloride 104 (98-107) mmol/L Carbon Dioxide 21 L (22-30) mmol/L Anion Gap 8 mmol/L BUN 28 H (7-17) mg/dL Creatinine 0.92 (0.52-1.04) mg/dL Est GFR (CKD-EPI)AfAm >90 (>60 ml/min/1.73 sqM) Est GFR (CKD-EPI)NonAf 84 (>60 ml/min/1.73 sqM) Glucose 95 (74-99) mg/dL Calcium 9.0 (8.4-10.2) mg/dL Total Bilirubin 0.6 (0.2-1.3) mg/dL AST 27 (14-36) U/L ALT 60 H (4-34) U/L Alkaline Phosphatase 101 (38-126) U/L Total Protein 7.5 (6.3-8.2) g/dL Albumin 3.5 (3.5-5.0) g/dL HCG, Quant 247.4 mIU/mL Disposition Clinical Impression: Ectopic of right ovary Disposition: HOME SELF-CARE Instructions (If sedation given, give patient instructions): Ectopic (DC) Is patient prescribed a controlled substance at d/c from ED?: No Referrals: Lou Olvera DO [Doctor of Osteopathic Medicine] - 1-2 days Time of Disposition: 10:56
[2021-10-25 08:08] LABS: Basophils # (A) 0.1 k/uL (0-0.2); Basophils % (A) 1 %; Eosinophils # (A) 0.3 k/uL (0-0.7); Eosinophils % (A) 3 %; HCT 33.9 % (34.0-46.0); HGB 11.3 gm/dL (11.4-16.0); Lymphocytes # (A) 2.1 k/uL (1.0-4.8); Lymphocytes % (A) 20 %; MCH 31.3 pg (25.0-35.0); MCHC 33.4 g/dL (31.0-37.0); MCV 93.8 fL (80.0-100.0); Mean Platelet Volume 6.7; Monocytes # (A) 0.2 k/uL (0-1.0); Monocytes % (A) 2 %; Neutrophils # (A) 7.9 k/uL (1.3-7.7); Neutrophils % (A) 73 %; Platelet Count 378 k/uL (150-450); RBC 3.62 m/uL (3.80-5.40); RDW 14.5 % (11.5-15.5); WBC 10.7 k/uL (3.8-10.6)
[2021-10-25 08:32] LABS: ALT 60 U/L (4-34); AST 27 U/L (14-36); African American GFR (CKD) >90 (>60 ml/min/1.73 sqM); Albumin 3.5 g/dL (3.5-5.0); Alkaline Phosphatase 101 U/L (38-126); Anion Gap 8 mmol/L; Blood Urea Nitrogen 28 mg/dL (7-17); Carbon Dioxide 21 mmol/L (22-30); Chloride 104 mmol/L (98-107); Glucose 95 mg/dL (74-99); Non-African American GFR(CKD) 84 (>60 ml/min/1.73 sqM); Potassium 4.1 mmol/L (3.5-5.1); Sodium 133 mmol/L (137-145); Total Bilirubin 0.6 mg/dL (0.2-1.3); Total Protein 7.5 g/dL (6.3-8.2)
[2021-10-25 08:48] LABS: HCG,Quantitative Serum 247.4 mIU/mL
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
[2021-10-25 09:51] VITALS: RESP 18
[2021-10-25 11:04] VITALS: BP 154/95; PULSE 90; TEMP 98
== END 2021-10-25 11:03 | disposition home or self-care (01) ==
LOC: EC 07:23
DX: O00.201 Right ovarian pregnancy without intrauterine pregnancy (principal); F31.9 Bipolar disorder, unspecified; F17.200 Nicotine dependence, unspecified, uncomplicated; F12.90 Cannabis use, unspecified, uncomplicated; Z3A.00 Weeks of gestation of pregnancy not specified; Z90.49 Acquired absence of other specified parts of digestive tract
CPT/HCPCS: 99284; 96374; 36415; 80053; 85025; 84702; 76801; 76817; J1885

== ENCOUNTER → 2021-10-28 | Outpatient (CLI) | payer SELFPAY | END | disposition home or self-care (01) | LOC: LABWHC1 09:22 | PROVIDERS: ATTEND Obstetrics & Gynecology | DX: O02.81 Inappropriate change in quantitative human chorionic gonadotropin (hCG) in early pregnancy (principal); Z3A.00 Weeks of gestation of pregnancy not specified | CPT/HCPCS: 36415; 84702 ==

== ENCOUNTER → 2021-11-07 | Outpatient (CLI) | payer OTHER ==
[~2021-11-07] MED LIST changes: -METHOTREXATE SODIUM (PF) 25 MG/ML 2 ML VIAL IM NR; +METHOTREXATE SODIUM (PF) 25 MG/ML 2 ML VIAL IM ONE
[2021-11-07 13:59] VITALS: RESP 16; TEMP 98.3
== END ==
LOC: PROCWHC3 13:43
PROVIDERS: ATTEND Obstetrics & Gynecology
DX: O00.90 Unspecified ectopic pregnancy without intrauterine pregnancy (principal); F17.200 Nicotine dependence, unspecified, uncomplicated
CPT/HCPCS: 96409; J9260

== ENCOUNTER → 2021-12-05 | Outpatient (CLI) | payer OTHER ==
[2021-12-05 18:08] LABS: Basophils # (A) 0.12 X 10*3/uL (0.00-0.10); Basophils % (A) 1.3 %; Eosinophils # (A) 0.52 X 10*3/uL (0.04-0.35); Eosinophils % (A) 5.5 %; HCT 39.4 % (37.2-46.3); HGB 12.3 g/dL (12.0-15.0); Immature Grans, Automated 0.3 %; Lymphocytes # (A) 3.07 X 10*3/uL (0.90-5.00); Lymphocytes % (A) 32.5 %; MCH 29.7 pg (27.0-32.0); MCHC 31.2 g/dL (32.0-37.0); MCV 95.2 fL (80.0-97.0); Mean Platelet Volume 9.7 fL (9.5-12.2); Monocytes # (A) 0.59 X 10*3/uL (0.20-1.00); Monocytes % (A) 6.3 %; NRBC Per 100 WBC 0 /100 WBCS (0.0-0.0); Neutrophils # (A) 5.11 X 10*3/uL (1.80-7.70); Neutrophils % (A) 54.1 %; Platelet Count 399 X 10*3/uL (140-440); RBC 4.14 X 10*6/uL (4.10-5.20); RDW 14.6 % (11.5-14.5); WBC 9.44 X 10*3/uL (4.50-10.00)
== END | disposition home or self-care (01) ==
LOC: LABPAT 13:00
PROVIDERS: ATTEND Obstetrics & Gynecology
DX: Z01.812 Encounter for preprocedural laboratory examination (principal)
CPT/HCPCS: 36415; 85025

== ENCOUNTER 2022-02-27 07:48 | Emergency (ER) | payer OTHER ==
[2022-02-27 07:57] VITALS: TEMP 97.9
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
[2022-02-27] MEDS ORDERED: IBUPROFEN 800 MG TAB PO STA (08:26)
[2022-02-27 08:42] VITALS: PULSE 101; RESP 18
[2022-02-27 08:44] VITALS: BP 180/108
== END 2022-02-27 08:42 | disposition home or self-care (01) ==
LOC: EC 07:48
DX: M54.2 Cervicalgia (principal); F17.200 Nicotine dependence, unspecified, uncomplicated; V89.2XXA Person injured in unspecified motor-vehicle accident, traffic, initial encounter
CPT/HCPCS: 99283

== ENCOUNTER → 2022-05-18 | Outpatient (CLI) | payer OTHER ==
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
== END | disposition home or self-care (01) ==
LOC: RADCTMAIN 14:07
PROVIDERS: ATTEND Emergency Medicine
DX: S00.83XA Contusion of other part of head, initial encounter (principal)
CPT/HCPCS: 70450; 70486